=== PATIENT | female | born 1995 | race Caucasian/White ===

== ENCOUNTER → 2016-10-16 | Outpatient (CLI) | payer MEDICAID ==
[2016-10-16 14:14] LABS: C-REACTIVE PROTEIN 11.8 mg/L (<10.0)
== END ==
LOC: OD 12:26
PROVIDERS: ATTEND Physician Assistant
DX: M25.50 Pain in unspecified joint (principal); N91.2 Amenorrhea, unspecified
CPT/HCPCS: 36415; 84702; 85597; 85598; 85613; 85652; 85730; 85732; 86038; 86140; 86146; 86147; 86148; 86200; 86430; 86849

== ENCOUNTER 2017-05-20 01:29 | Emergency (ER) | payer MEDICAID ==
[2017-05-20] MEDS ORDERED: ONDANSETRON HCL INJ/PF 4 MG/2 ML SDV IV ONE (03:10)
[2017-05-20] MEDS ORDERED: NORMAL SALINE 1000 ML 1,000 ML IV ONE (03:11)
--- NOTE | 2017-05-20 03:15 | ER Document Report ---
HPI - HPI Pain Level: 4 Notes: Patient with a history of pulmonary embolism (on Coumadin), ulcerative colitis comes to the ED complaining of lower pelvic pain and heavy vaginal bleeding 7 hours. Patient states that she did start her period yesterday, but states that she has gone through 5 tampons and 2 pads over the last 3 hours. Patient has associated nausea without vomiting, occasional dizziness, and mild lower back pain. Patient has a decreased appetite as well. Patient denies any sexual intercourse over the last 3 weeks. Patient states that she was treated for bacterial vaginosis 2 weeks ago and finished her antibiotic a few days ago. Patient states that her Coumadin/INR was 3.7 today and she was holding last night's dose because of that. Patient states that she did pass a large vaginal clot due to the heavy bleeding. Denies any headache, fever, URI, sore throat, chest pain, palpitations, syncope, cough, shortness of breath, wheeze, dyspnea, vomiting/diarrhea, urinary retention, dysuria, hematuria, loss of control of bowel or bladder, numbness/tingling, saddle anesthesia, muscle paralysis/ weakness, or rash. - ROS Notes: REVIEW OF SYSTEMS: CONSTITUTIONAL : Denies fever, chills, or sweats. Denies recent illness. EENT: Denies eye, ear, throat, or mouth pain or symptoms. Denies nasal or sinus congestion or discharge. Denies throat, tongue, or mouth swelling or difficulty swallowing. CARDIOVASCULAR: Denies chest pain. Denies palpitations or racing or irregular heart beat. Denies ankle edema. RESPIRATORY: Denies cough, cold, or chest congestion. Denies shortness of breath, difficulty breathing, or wheezing. GASTROINTESTINAL: See HPI GENITOURINARY: Denies difficulty urinating, painful urination, burning, frequency, blood in urine, or discharge. FEMALE GENITOURINARY: See HPI MUSCULOSKELETAL: Denies back or neck pain or stiffness. Denies joint pain or swelling. SKIN: Denies rash, lesions or sores. NEUROLOGICAL: Denies confusion or altered mental status. Denies passing out or loss of consciousness. Denies dizziness or lightheadedness. Denies headache. Denies weakness or paralysis or loss of use of either side. Denies problems with gait or speech. Denies sensory loss, numbness, or tingling. Denies seizures. PSYCHIATRIC: Denies anxiety or stress. Denies depression, suicidal ideation, or homicidal ideation. ALL OTHER SYSTEMS REVIEWED AND NEGATIVE. Dictation was performed using [employer] voice recognition software - REPRODUCTIVE Reproductive: DENIES: : - DERM Skin Color: Normal, [place] Past Medical History - Social History Smoking Status: Never Smoker Family History: Arthritis, CAD, CVA, DM, Hyperlipidemia, Hypertension, Malignancy - Past Medical History Cardiac Medical History: Reports: Hx DVT, Hx Pulmonary Embolism - Twice Pulmonary Medical History: Reports: Hx Intubation - With trach as a child Renal/ Medical History: Denies: Hx Peritoneal Dialysis GI Medical History: Reports: Hx Gastroesophageal Reflux Disease, Hx Ulcerative Colitis, Hx Colonoscopy, Hx Endoscopy Musculoskeltal Medical History: Reports Hx Arthritis, Reports Hx Musculoskeletal Trauma - nose, bilateral ankles, and toe Psychiatric Medical History: Reports: Hx Anxiety, Hx Depression Traumatic Medical History: Reports: Hx Fractures Past Surgical History: Reports: Hx Abdominal Surgery - colostomy/take down multiple bowel surgeries, Hx Bowel Surgery - Multiple bowel surgeries and a J- pouch, Hx Cholecystectomy, Hx Colostomy - Had reversal surgery creating a J- pouch - Immunizations Immunizations up to date: Yes Hx Diphtheria, Pertussis, Tetanus Vaccination: Yes Vertical Provider Document - INFECTION CONTROL TRAVEL OUTSIDE OF THE [place] IN LAST 30 DAYS: No - RESPIRATORY O2 Sat by Pulse Oximetry: 97 Course - Re-evaluation Re-evalutation: 05/20/17 06:20 Patient is an afebrile, well-hydrated, 21-year-old female who presents the ED with vaginal bleeding and suspected UTI. Vitals are stable. PE otherwise unremarkable at this time. CBC, CMP unremarkable. Urine negative. Urinalysis showed white blood cells and leuks. Transvaginal ultrasound was unremarkable for any acute pathology. 1L NS given along with zofran and tylenol. Patient has a history of pulmonary embolism and is currently on Coumadin with an INR of 2.52. Reviewed with Dr. Rausch. Pt is hemodynamically stable. I will send her home with a prescription for Keflex to take as directed. Patient advised she call her OBGYN this morning to set up a consult. Recheck with PCM this week. Return to the ED with any worsening/ concerning symptoms otherwise as reviewed discharge. Patient is in agreement. Patient advised to monitor INR closely when on an antibiotic. - Vital Signs Vital signs: Temp Pulse Resp BP Pulse Ox 99.1 F 96 16 126/76 H 97 05/20/17 01:55 05/20/17 01:55 05/20/17 03:01 05/20/17 03:01 05/20/17 03:01 - Laboratory Result Diagrams: 05/20/17 02:55 05/20/17 02:55 Discharge - Discharge Clinical Impression: Dysfunctional uterine bleeding UTI (urinary tract infection) Qualifiers: Urinary tract infection type: site unspecified Hematuria presence: without hematuria Qualified Code(s): N39.0 - Urinary tract infection, site not specified Condition: Stable Disposition: HOME, SELF-CARE Instructions: Urinary Tract Infection ([facility]), Cephalexin ([facility]), Dysfunctional Uterine Bleeding ([facility]) Additional Instructions: Take home medications as directed Take antibiotic as directed, and monitor your INR very closely while on antibiotics Push fluids (i.e. water, cranberry juice) Proper hygenic technique Keep the skin clean Tylenol/ibuprofen as needed May use over the counter AZO for burning with urination Call your SIGN LANGUAGE INSTRUCTOR this morning to set up a follow-up appointment F/u with your PCM in 2-3 days for a recheck Consider consult with a Urologist for ongoing/worsening symptoms. Return to the ED with any worsening symptoms and/or development of fever, headache, chest pain, palpitations, syncope, shortness of breath, trouble breathing, abdominal pain, n/v/d, blood in stool/urine, loss of control of bowel /bladder, urinary retention, or other worsening symptoms that are concerning to you. Forms: Elevated Blood Pressure Referrals: YAHIR WOOD DO [Primary Care Provider] - 05/22/17
[2017-05-20 03:17] LABS: ABSOLUTE BASOPHILS # (AUTO) 0.1 10^3/uL (0.0-0.2); ABSOLUTE EOSINOPHILS # (AUTO) 0.5 10^3/uL (0.0-0.6); ABSOLUTE MONOCYTES (AUTO) 0.7 10^3/uL (0.1-1.4); ABSOLUTE NEUT (AUTO) 5.7 10^3/uL (1.7-8.2); BASOPHILS % (AUTO) 1.1 % (0-2); EOSINOPHILS % (AUTO) 6.1 % (0-6); HEMATOCRIT 40.6 % (36.0-47.0); HEMOGLOBIN 13.7 g/dL (12.0-15.5); HGB HCT DIFFERENCE 0.5; LYMPHOCYTES % (AUTO) 22.2 % (13-45); MEAN CORPUSCULAR HEMOGLOBIN 28.2 pg (27.0-33.4); MEAN CORPUSCULAR HGB CONC 33.8 g/dL (32.0-36.0); MEAN CORPUSCULAR VOLUME 84 fl (80-97); MONOCYTES % (AUTO) 7.2 % (3-13); RED BLOOD COUNT 4.85 10^6/uL (3.72-5.28); RED CELL DISTRIBUTION WIDTH 13.8 % (11.5-14.0); SEGMENTED NEUTROPHILS % (AUTO) 63.4 % (42-78)
[2017-05-20 03:35] LABS: ALANINE AMINOTRANSFERASE 42 U/L (9-52); ALBUMIN 4.4 g/dL (3.5-5.0); ALKALINE PHOSPHATASE 108 U/L (38-126); ANION GAP 10 (5-19); ASPARTATE AMINO TRANSFERASE 79 U/L (14-36); BILIRUBIN,DIRECT 0.5 mg/dL (0.0-0.4); BILIRUBIN,TOTAL 0.7 mg/dL (0.2-1.3); BLOOD UREA NITROGEN 11 mg/dL (7-20); CALCIUM 9.6 mg/dL (8.4-10.2); CARBON DIOXIDE 26 mmol/L (22-30); CHLORIDE 103 mmol/L (98-107); CREATININE RESULT 0.76 mg/dL (0.52-1.25); GLUCOSE 86 mg/dL (75-110); POTASSIUM 4.1 mmol/L (3.6-5.0); SODIUM 138.8 mmol/L (137-145); TOTAL PROTEIN 7.7 g/dL (6.3-8.2)
[2017-05-20 03:42] LABS: PROTHROMBIN TIME 28.5 SEC (11.4-15.4)
[2017-05-20 03:43] LABS: PARTIAL THROMBOPLASTIN TIME 45.7 SEC (23.5-35.8)
[2017-05-20] MEDS ORDERED: ACETAMINOPHEN 325 MG TABLET PO ONE (03:50)
[2017-05-20 04:13] LABS: ADD ON TESTING BLD IN LAB ACKNOWLEDGE
[2017-05-20 04:16] LABS: APPEARANCE,URINE SLIGHTLY-CLOUDY; BILIRUBIN,URINE NEGATIVE (NEGATIVE); GLUCOSE, URINE NEGATIVE (NEGATIVE); KETONES,URINE NEGATIVE (NEGATIVE); LEUKOCYTE ESTERASE,URINE MODERATE (NEGATIVE); NITRITE,URINE NEGATIVE (NEGATIVE); PROTEIN,URINE NEGATIVE (NEGATIVE); URINE SPECIFIC GRAVITY 1.006; UROBILINOGEN,URINE NEGATIVE mg/dL (<2.0)
[2017-05-20 04:21] LABS: LIPASE 103.5 U/L (23-300)
--- NOTE | 2017-05-20 06:03 | RADIOLOGY REPORT (SQ) ---
EXAM DESCRIPTION: U/S NON OB PEL TV W/DOPPLER COMPLETED DATE/TIME: 05/20/2017 5:35 am REASON FOR STUDY: pelvic pain, vaginal bleeding COMPARISON: CT, 06/11/2016, 06/23/2015. TECHNIQUE: Dynamic and static grayscale images acquired of the pelvis via transvaginal approach and recorded on PACS. Additional selected color Doppler and spectral images recorded. LIMITATIONS: None. FINDINGS: UTERUS: Contour normal. No mass. 6.9 x 4.6 x 3.6 cm. ENDOMETRIAL STRIPE: No focal or generalized thickening. No masses. 0.4 cm thick. CERVIX: No nabothian cysts. RIGHT OVARY: 4.7 cm with 2.9 cm cystic component. 3.5 cm cm cystic component likely indicates a smal l hydrosalpinx consistent with prior exams. RIGHT OVARY DOPPLER: Normal arterial vascular flow without evidence for torsion. LEFT OVARY: No abnormal masses. 3.7 cm. LEFT OVARY DOPPLER: Normal arterial vascular flow without evidence for torsion. FREE FLUID: None noted. OTHER: No other significant finding. MEASUREMENTS: UTERUS: 6.9 x 5 x 4 cm. ENDOMETRIAL STRIPE: 0.4 cm thickness. RIGHT OVARY: 4.7 cm. LEFT OVARY: 3.7 cm. IMPRESSION: No acute findings. Likely chronic small right hydrosalpinx. TECHNICAL DOCUMENTATION: JOB ID: [id number]- All Rights Reserved
[2017-05-20 07:07] VITALS: BP 120/65
== END 2017-05-20 07:05 | disposition home or self-care (01) ==
LOC: ER 01:29
DX: N93.8 Other specified abnormal uterine and vaginal bleeding (principal); N39.0 Urinary tract infection, site not specified; Z86.711 Personal history of pulmonary embolism; Z79.01 Long term (current) use of anticoagulants; Z90.49 Acquired absence of other specified parts of digestive tract
CPT/HCPCS: 99284; 96361; 96374; 36415; 83690; 85025; 85610; 85730; 81025; 80053; 81001; 76830; 93976; J3490; J2405; J7030

== ENCOUNTER 2017-06-18 00:49 | Emergency (ER) | payer MEDICAID ==
--- NOTE | 2017-06-18 01:43 | ER Document Report ---
ED General - General Chief Complaint: Vaginal Discharge Stated Complaint: NAUSEA AND FEVER Time Seen by Provider: 06/18/17 01:09 Mode of Arrival: Ambulatory Information source: Patient Notes: This is a 21-year-old female with a history of ulcerative colitis (status post total colectomy), pulmonary embolism (on Coumadin) who presents to the emergency room with nausea, pelvic pain. Patient does states she has been having some vaginal spotting as well as vaginal discharge. She states she is about due for her period. She does state that she has painful periods. TRAVEL OUTSIDE OF THE [place] IN LAST 30 DAYS: No - HPI Onset: Last week Onset/Duration: Gradual Quality of pain: Dull Severity: Moderate Pain Level: 2 Associated symptoms: Fever - Patient states she had a temperature of 100.9 today. denies: Chest pain, Nonproductive cough, Productive cough, Nausea, Vomiting, Shortness of breath Exacerbated by: Denies Relieved by: Denies Similar symptoms previously: Yes Recently seen / treated by doctor: Yes - Related Data Allergies/Adverse Reactions: loracarbef [From Lorabid] Allergy (Verified 06/18/17 00:52) Past Medical History - General Information source: Patient Last Menstrual Period: 05/19/2017 - Social History Smoking Status: Former Smoker Cigarette use (# per day): No Chew tobacco use (# tins/day): No Frequency of alcohol use: None Drug Abuse: None Lives with: Family Family History: Arthritis, CAD, CVA, DM, Hyperlipidemia, Hypertension, Malignancy Patient has suicidal ideation: No Patient has homicidal ideation: No - Past Medical History Cardiac Medical History: Reports: Hx DVT, Hx Pulmonary Embolism - Twice Pulmonary Medical History: Reports: Hx Intubation - With trach as a child Renal/ Medical History: Denies: Hx Peritoneal Dialysis GI Medical History: Reports: Hx Gastroesophageal Reflux Disease, Hx Ulcerative Colitis, Hx Colonoscopy, Hx Endoscopy Musculoskeltal Medical History: Reports Hx Arthritis, Reports Hx Musculoskeletal Trauma - nose, bilateral ankles, and toe Psychiatric Medical History: Reports: Hx Anxiety, Hx Depression Traumatic Medical History: Reports: Hx Fractures Past Surgical History: Reports: Hx Abdominal Surgery - colostomy/take down multiple bowel surgeries, Hx Bowel Surgery - Multiple bowel surgeries and a J- pouch, Hx Cholecystectomy, Hx Colostomy - Had reversal surgery creating a J- pouch - Immunizations Immunizations up to date: Yes Hx Diphtheria, Pertussis, Tetanus Vaccination: Yes Review of Systems - Review of Systems Constitutional: Fever. denies: Chills EENT: No symptoms reported Cardiovascular: No symptoms reported. denies: Chest pain, Palpitations, Syncope Respiratory: denies: Cough, Short of breath Gastrointestinal: denies: Abdominal pain, Diarrhea, Vomiting Genitourinary: denies: Burning, Dysuria, Discharge - Is Female Genitourinary: Vaginal discharge, Vaginal bleeding Musculoskeletal: No symptoms reported Skin: No symptoms reported Hematologic/Lymphatic: No symptoms reported Neurological/Psychological: No symptoms reported Physical Exam - Vital signs Vitals: Temp Pulse Resp BP Pulse Ox 98.8 F 103 H 20 132/88 H 99 06/18/17 00:56 06/18/17 00:56 06/18/17 00:56 06/18/17 00:56 06/18/17 00:56 Notes: Physical exam: GENERAL: 21-year-old female, alert and oriented 3, no acute distress HEAD: Atraumatic, normocephalic. EYES: Pupils equal round and reactive to light, extraocular movements intact, sclera anicteric, conjunctiva are normal. ENT: TMs normal, nares patent, oropharynx clear without exudates. Moist mucous membranes. NECK: Normal range of motion, supple without obvious mass or JVD. LUNGS: Breath sounds clear to auscultation bilaterally and equal. No wheezes rales or rhonchi. HEART: Regular rate and rhythm without murmurs, rubs or gallops. ABDOMEN: Soft, normoactive bowel sounds. Mild pelvic tenderness to palpation. No guarding, no rebound. No masses appreciated. Vaginal: External genitalia normal. Blood in vaginal vault, coming from cervix. There is uterine tenderness. There is no obvious masses. EXTREMITIES: Normal range of motion, no pitting or edema. No clubbing or cyanosis. NEUROLOGICAL: Cranial nerves II through XII grossly intact. Normal speech, moving all extremities. PSYCH: Normal mood, normal affect. SKIN: Warm, Dry, normal turgor, no rashes or lesions noted. Course - Re-evaluation Re-evalutation: 06/18/17 04:27 I have had a long discussion with the patient (and the mother who is at the bedside) regarding the ultrasound report. I have read them the impression. [facility] BUSINESS MACHINE MECHANIC. She does have an appointment with her primary care doctor on Friday and states that every time she goes to the [facility], she requires a referral. I have given them a copy of the ultrasound reports and told them to show both the primary care doctor as well as the supervisor publications production. The ultrasound report suggests repeat ultrasound in 6 weeks or BUSINESS MACHINE MECHANIC consultation. A neoplastic process cannot be ruled out: I have discussed this with the patient and the mother's at the bedside - Vital Signs Vital signs: Temp Pulse Resp BP Pulse Ox 98.8 F 103 H 20 132/88 H 99 06/18/17 00:56 06/18/17 00:56 06/18/17 00:59 06/18/17 00:56 06/18/17 00:56 - Laboratory Result Diagrams: 06/18/17 01:50 06/18/17 01:50 Laboratory results interpreted by me: 06/18/17 06/18/17 06/18/17 01:50 01:50 01:50 RDW 14.8 H PT 27.1 H Sodium 145.2 H Chloride 108 H Ur Leukocyte Esterase 06/18/17 01:50 RDW PT Sodium Chloride Ur Leukocyte Esterase TRACE H - Diagnostic Test Radiology reviewed: Image reviewed, Reports reviewed - Paraovarian cystic or nonvascular mass Discharge - Discharge Clinical Impression: Menorrhagia, Paraovarian cyst Condition: Stable Disposition: HOME, SELF-CARE Instructions: Menorrhagia ([facility]), Ovarian Cyst ([facility]) Additional Instructions: Thank you for choosing [facility] for your care. The examination and treatment you have received in the Emergency Department today has been rendered on an emergency basis only and is not intended to be a substitute for complete medical care. You should contact your follow-up physician as it is important that he or she examine you for any new or remaining problems. If given a copy of any lab tests or radiology reports, please bring them with you when you see your physician. If your problem worsens or new symptoms appear and you are unable to arrange prompt follow-up care, return to the Emergency Department. Specific signs to look out for: Worsening pain, persistent fever, any concerns or getting worse. Any other instructions: Take the pain medicine as prescribed. See the narcotic instructions below. Take Zofran for nausea. Follow-up with your primary care doctor as planned on Friday: Bring a copy of today's ultrasound report as well as labs with you. The ultrasound report recommended repeat ultrasound in 6 weeks or BUSINESS MACHINE MECHANIC follow- up. I recommend you see your BUSINESS MACHINE MECHANIC doctor in the next week or 2. Bring a copy of today's labs and ultrasound report with you when you go. The pain medicine you're taking prescribed as a narcotic. There are several important things you should know about this medicine: 1. Taking narcotics for too long can lead to physical and mental dependence. Take this medicine only if really needed and in the lowest quantity to achieve pain relief. 2. Do not drink alcohol while on this medicine. Alcohol interacts with narcotics and the combination can be dangerous. 3. Do not drive or operate machinery while on this medicine. 4. Narcotics do cause constipation, so drink plenty of fluids and daily stool softeners. Prescriptions: Oxycodone HCl 5 mg PO Q6HP PRN #25 tablet PRN Reason: Ondansetron HCl [Zofran 4 mg Tablet] 1 - 2 tab PO Q4H PRN #10 tablet PRN Reason: Referrals: YAHIR WOOD DO [Primary Care Provider] - Follow up as needed OLIVE LE MD [ACTIVE STAFF] - Follow up as needed (This is the number [facility])
[2017-06-18 02:04] LABS: ABSOLUTE BASOPHILS # (AUTO) 0.1 10^3/uL (0.0-0.2); ABSOLUTE EOSINOPHILS # (AUTO) 0.4 10^3/uL (0.0-0.6); ABSOLUTE LYMPHOCYTES (AUTO) 2.2 10^3/uL (0.5-4.7); ABSOLUTE MONOCYTES (AUTO) 0.5 10^3/uL (0.1-1.4); ABSOLUTE NEUT (AUTO) 5.6 10^3/uL (1.7-8.2); BASOPHILS % (AUTO) 0.9 % (0-2); EOSINOPHILS % (AUTO) 4.7 % (0-6); HEMATOCRIT 42.4 % (36.0-47.0); HEMOGLOBIN 14.1 g/dL (12.0-15.5); HGB HCT DIFFERENCE -0.1; LYMPHOCYTES % (AUTO) 24.7 % (13-45); MEAN CORPUSCULAR HEMOGLOBIN 28.4 pg (27.0-33.4); MEAN CORPUSCULAR HGB CONC 33.3 g/dL (32.0-36.0); MEAN CORPUSCULAR VOLUME 85 fl (80-97); MONOCYTES % (AUTO) 6.2 % (3-13); RED BLOOD COUNT 4.98 10^6/uL (3.72-5.28); RED CELL DISTRIBUTION WIDTH 14.8 % (11.5-14.0); SEGMENTED NEUTROPHILS % (AUTO) 63.5 % (42-78); WHITE BLOOD COUNT 8.8 10^3/uL (4.0-10.5)
[2017-06-18] MEDS ORDERED: ONDANSETRON HCL 8 MG TABLET PO ONE (02:04)
[2017-06-18] MEDS ORDERED: OXYCODONE-ACETAMINOPHEN 5-325 MG TABLET PO ONE (02:04)
[2017-06-18 02:05] LABS: APPEARANCE,URINE CLEAR; BILIRUBIN,URINE NEGATIVE (NEGATIVE); GLUCOSE, URINE NEGATIVE (NEGATIVE); KETONES,URINE NEGATIVE (NEGATIVE); LEUKOCYTE ESTERASE,URINE TRACE (NEGATIVE); NITRITE,URINE NEGATIVE (NEGATIVE); PROTEIN,URINE NEGATIVE (NEGATIVE); URINE SPECIFIC GRAVITY 1.023; UROBILINOGEN,URINE NEGATIVE mg/dL (<2.0)
[2017-06-18 02:07] LABS: PROTHROMBIN TIME 27.1 SEC (11.4-15.4)
[2017-06-18 03:25] LABS: ALANINE AMINOTRANSFERASE 33 U/L (9-52); ALBUMIN 4.6 g/dL (3.5-5.0); ALKALINE PHOSPHATASE 97 U/L (38-126); ANION GAP 14 (5-19); ASPARTATE AMINO TRANSFERASE 28 U/L (14-36); BILIRUBIN,DIRECT 0.3 mg/dL (0.0-0.4); BILIRUBIN,TOTAL 0.4 mg/dL (0.2-1.3); BLOOD UREA NITROGEN 13 mg/dL (7-20); CALCIUM 10.1 mg/dL (8.4-10.2); CARBON DIOXIDE 23 mmol/L (22-30); CHLORIDE 108 mmol/L (98-107); CREATININE RESULT 0.95 mg/dL (0.52-1.25); GLUCOSE 87 mg/dL (75-110); POTASSIUM 4.1 mmol/L (3.6-5.0); SODIUM 145.2 mmol/L (137-145); TOTAL PROTEIN 7.3 g/dL (6.3-8.2)
[2017-06-18 03:42] LABS: CHLAM PCR NOT DETECTED (NOT DETECT)
--- NOTE | 2017-06-18 04:13 | RADIOLOGY REPORT (SQ) ---
EXAM DESCRIPTION: U/S NON OB PEL TV W/DOPPLER COMPLETED DATE/TIME: 06/18/2017 3:46 am REASON FOR STUDY: pelvic pain COMPARISON: None. TECHNIQUE: Dynamic and static grayscale images acquired of the pelvis via transvaginal approach and recorded on PACS. Additional selected color Doppler and spectral images recorded. LIMITATIONS: None. FINDINGS: UTERUS: Contour normal. No mass. ENDOMETRIAL STRIPE: No focal or generalized thickening. No masses. CERVIX: No nabothian cysts. RIGHT OVARY: 4.4 x 3.4 x 3.1 cm right ovary with 4.0 x 3.9 x 1.8 cm hypoechoic, avascular paraovarian component increase compared with prior exam, 05/20/2017 at which time it measured 3.7 x 3.2 x 1.7 cm. RIGHT OVARY DOPPLER: Normal arterial vascular flow without evidence for torsion. LEFT OVARY: No abnormal masses. LEFT OVARY DOPPLER: Normal arterial vascular flow without evidence for torsion. FREE FLUID: None noted. OTHER: No other significant finding. MEASUREMENTS: UTERUS: 6.8 cm. ENDOMETRIAL STRIPE: 0.4 cm. RIGHT OVARY: 4.4 cm. LEFT OVARY: 3.7 cm. IMPRESSION: 4.0 cm right paraovarian hypoechoic, avascular lesion may indicate a small hydrosalpinx and/or paraovarian cyst slightly increased compared with prior exam from 05/20/2017. Other neoplastic processes cannot be excluded. Further ultrasound surveillance in 6 weeks and/or PAPER CONE MACHINE OPERATOR consultation ad vised. TECHNICAL DOCUMENTATION: JOB ID: [id number] [employer]- All Rights Reserved
[2017-06-18 04:57] VITALS: BP 115/53
== END 2017-06-18 04:57 | disposition home or self-care (01) ==
LOC: ER 00:49
DX: N83.291 Other ovarian cyst, right side (principal); N92.0 Excessive and frequent menstruation with regular cycle; N89.8 Other specified noninflammatory disorders of vagina; R11.0 Nausea; R50.9 Fever, unspecified; R10.2 Pelvic and perineal pain; Z87.891 Personal history of nicotine dependence
CPT/HCPCS: 99284; 36415; 87210; 84703; 85025; 85610; 80053; 81001; 87491; 87591; 76830; 93976; S0119

== ENCOUNTER 2017-09-13 09:01 | Emergency (ER) | payer OTHER, MEDICAID ==
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
[2017-09-13] MEDS ORDERED: HYDROCODONE/ACETAMINOPHEN 5-325 MG 6 TAB/DSPK PO PRN (10:04)
[2017-09-13] MEDS ORDERED: LIDOCAINE 5% (700 MG) TRANSDERMAL ADH..PATCH TP ONE (10:04)
[2017-09-13 10:10] VITALS: BP 137/84
== END 2017-09-13 10:19 | disposition home or self-care (01) ==
LOC: ER 09:01
DX: S49.92XA Unspecified injury of left shoulder and upper arm, initial encounter (principal); M25.512 Pain in left shoulder; V87.7XXA Person injured in collision between other specified motor vehicles (traffic), initial encounter; Z87.891 Personal history of nicotine dependence
CPT/HCPCS: 99283

== ENCOUNTER 2018-01-04 21:30 | Emergency (ER) | payer MEDICAID ==
[2018-01-05 00:37] LABS: APPEARANCE,URINE CLEAR; BILIRUBIN,URINE NEGATIVE (NEGATIVE); COLOR,URINE YELLOW; GLUCOSE, URINE NEGATIVE (NEGATIVE); KETONES,URINE NEGATIVE (NEGATIVE); LEUKOCYTE ESTERASE,URINE LARGE (NEGATIVE); NITRITE,URINE NEGATIVE (NEGATIVE); PROTEIN,URINE 30 mg/dL (NEGATIVE); URINE SPECIFIC GRAVITY 1.033; UROBILINOGEN,URINE NEGATIVE mg/dL (<2.0)
[2018-01-05] MEDS ORDERED: CEPHALEXIN 500 MG CAPSULE PO ONE (00:56)
--- NOTE | 2018-01-05 00:57 | ER Document Report ---
ED General - General Chief Complaint: Urinary Problem Stated Complaint: VAGINAL DISCOMFORT Time Seen by Provider: 01/04/18 23:44 Notes: Patient is a 22-year-old female without past medical history who presents with 3 days of dysuria and urinary frequency. Describes as a burning, stinging sensation with urination. She has been trying [id number] Azo with minimal improvement of her symptoms. Nothing worsens her symptoms. She reports that this feels similar to urinary tract infections that she has had in the past although slightly worse. She has not seen her primary care doctor regarding these concerns. She denies any associated fever or constitutional symptoms. TRAVEL OUTSIDE OF THE [place] IN LAST 30 DAYS: No - Related Data Allergies/Adverse Reactions: loracarbef [From Lorabid] Allergy (Verified 08/09/17 22:46) NSAIDS (Non-Steroidal Anti-Inflamma Adverse Reaction (Verified 09/13/17 09:06) Past Medical History - General Information source: Patient - Social History Smoking Status: Never Smoker Frequency of alcohol use: None Drug Abuse: None Lives with: Family Family History: Arthritis, CAD, CVA, DM, Hyperlipidemia, Hypertension, Malignancy Patient has suicidal ideation: No Patient has homicidal ideation: No - Past Medical History Cardiac Medical History: Reports: Hx DVT, Hx Pulmonary Embolism - Twice Pulmonary Medical History: Reports: Hx Intubation - With trach as a child Renal/ Medical History: Reports: Hx Ovarian Cysts. Denies: Hx Peritoneal Dialysis GI Medical History: Reports: Hx Gastroesophageal Reflux Disease, Hx Ulcerative Colitis, Hx Colonoscopy, Hx Endoscopy Musculoskeltal Medical History: Reports Hx Arthritis, Reports Hx Musculoskeletal Trauma - nose, bilateral ankles, and toe Psychiatric Medical History: Reports: Hx Anxiety, Hx Depression Traumatic Medical History: Reports: Hx Fractures Past Surgical History: Reports: Hx Abdominal Surgery - colostomy/take down multiple bowel surgeries, Hx Bowel Surgery - Multiple bowel surgeries and a J- pouch, Hx Cholecystectomy, Hx Colostomy - Had reversal surgery creating a J- pouch - Immunizations Immunizations up to date: Yes Hx Diphtheria, Pertussis, Tetanus Vaccination: Yes Review of Systems - Review of Systems Notes: Constitutional: Negative for fever. HENT: Negative for sore throat. Eyes: Negative for visual changes. Cardiovascular: Negative for chest pain. Respiratory: Negative for shortness of breath. Gastrointestinal: Negative for abdominal pain, vomiting or diarrhea. Genitourinary: Positive for dysuria. Musculoskeletal: Negative for back pain. Skin: Negative for rash. Neurological: Negative for headaches, weakness or numbness. 10 point ROS negative except as marked above and in HPI. Physical Exam - Vital signs Vitals: Temp Pulse Resp BP Pulse Ox 98.4 F 90 20 122/73 99 01/04/18 22:40 01/04/18 22:40 01/04/18 22:40 01/04/18 22:40 01/04/18 22:40 Interpretation: Normal Notes: PHYSICAL EXAMINATION: GENERAL: Well-appearing, well-nourished and in no acute distress. HEAD: Atraumatic, normocephalic. EYES: Pupils equal round and reactive to light, extraocular movements intact, sclera anicteric, conjunctiva are normal. ENT: nares patent, oropharynx clear without exudates. Moist mucous membranes. NECK: Normal range of motion, supple without lymphadenopathy LUNGS: Breath sounds clear to auscultation bilaterally and equal. No wheezes rales or rhonchi. HEART: Regular rate and rhythm without murmurs ABDOMEN: Soft, nontender, normoactive bowel sounds. No guarding, no rebound. No masses appreciated. EXTREMITIES: Normal range of motion, no pitting or edema. No cyanosis. NEUROLOGICAL: No focal neurological deficits. Moves all extremities spontaneously and on command. PSYCH: Normal mood, normal affect. SKIN: Warm, Dry, normal turgor, no rashes or lesions noted. Course - Re-evaluation Re-evalutation: 01/05/18 00:56 Patient presents with symptoms consistent with an acute cystitis. Vitals wnl. No history of fever, flank pain, or constitution symptoms to suggest ascending infection at this time. Patient is well in appearance, tolerating oral intake without difficulty. No focal abdominal tenderness to suggest acute appendicitis , biliary pathology, acute pancreatitis, tubo-ovarian abscesses, or pelvic inflammatory disease. Patient will be started on antibiotics at this time. A culture has been sent. They will be discharged with return precautions and follow-up recommendations. - Vital Signs Vital signs: Temp Pulse Resp BP Pulse Ox 98.4 F 83 16 126/56 H 100 01/04/18 22:40 01/05/18 01:09 01/05/18 01:09 01/05/18 01:09 01/05/18 01:09 - Laboratory Laboratory results interpreted by me: 01/04/18 23:30 Urine Protein 30 H Ur Leukocyte Esterase LARGE H Urine Ascorbic Acid 40 H Discharge - Discharge Clinical Impression: Urinary tract infection Qualifiers: Urinary tract infection type: acute cystitis Hematuria presence: with hematuria Qualified Code(s): N30.01 - Acute cystitis with hematuria Condition: Good Disposition: HOME, SELF-CARE Additional Instructions: Your urine shows findings consistent with a urinary tract infection. Please take all the antibiotics as directed even if your symptoms have improved. Please follow-up with your primary care physician as needed. Return to emergency room if you develop fever >101F, persistent vomiting, become lethargic , have severe pain in your sides, or any other symptoms that are concerning to you. Prescriptions: Cephalexin Monohydrate [Keflex 500 mg Capsule] 500 mg PO Q6H 5 Days capsule Phenazopyridine HCl [Pyridium] 100 mg PO TID PRN #30 tablet PRN Reason: Referrals: JUANITA SOL MD [Primary Care Provider] - Follow up as needed
[2018-01-05 01:11] VITALS: BP 126/56
== END 2018-01-05 01:11 | disposition home or self-care (01) ==
LOC: ER 21:30
DX: N30.01 Acute cystitis with hematuria (principal); Z86.718 Personal history of other venous thrombosis and embolism; Z86.711 Personal history of pulmonary embolism; Z90.49 Acquired absence of other specified parts of digestive tract; Z93.3 Colostomy status
CPT/HCPCS: 36415; 81001; 81025; 87086; 87088; 87186; 99284

== ENCOUNTER → 2018-02-12 | Outpatient (CLI) | payer MEDICAID ==
--- NOTE | 2018-02-12 18:00 | RADIOLOGY REPORT (SQ) ---
EXAM DESCRIPTION: CHEST 2 VIEWS COMPLETED DATE/TIME: 02/12/2018 5:21 pm REASON FOR STUDY: SOB, PE COMPARISON: 03/19/2016 EXAM PARAMETERS: NUMBER OF VIEWS: two views TECHNIQUE: Digital Frontal and Lateral radiographic views of the chest acquired. RADIATION DOSE: NA LIMITATIONS: none FINDINGS: LUNGS AND PLEURA: No opacities, masses or pneumothorax. No pleural effusion. MEDIASTINUM AND HILAR STRUCTURES: No masses or contour abnormalities. HEART AND VASCULAR STRUCTURES: Heart normal size. No evidence for failure. BONES: No acute findings. HARDWARE: None in the chest. OTHER: No other significant finding. IMPRESSION: NO ACUTE RADIOGRAPHIC FINDING IN THE CHEST. TECHNICAL DOCUMENTATION: JOB ID: [id number] [employer]- All Rights Reserved Reading location - IP/workstation name: [email or web address]
--- NOTE | 2018-02-12 18:18 | RADIOLOGY REPORT (SQ) ---
EXAM DESCRIPTION: NM LUNG VENT/PERF SCAN COMPLETED DATE/TIME: 02/12/2018 6:06 pm REASON FOR STUDY: CP, SOB, PRIOR H/O PE R06.02 SHORTNESS OF BREATH COMPARISON: None. RADIONUCLIDE AND DOSE: 5 millicuries TC-99m MAA Intravenous 30 millicuries TC-99m DTPA Inhaled aerosol TECHNIQUE: Eight views of the lungs acquired post ventilation of DTPA aerosol. Eight matching views of the lungs acquired following injection of MAA. LIMITATIONS: None. FINDINGS: VENTILATION: Symmetric in homogeneous distribution DTPA. Reduced volume in the right lung that appears to be secondary to elevation the right hemidiaphragm. PERFUSION: Perfusion images with normal homogenous activity and no wedge-shaped or segmental defects. No ventilation-perfusion mismatches. OTHER: No other significant finding. IMPRESSION: Low probability of pulmonary embolus. TECHNICAL DOCUMENTATION: JOB ID: [id number] [email or web address]- All Rights Reserved Reading location - IP/workstation name: [email or web address]
== END ==
LOC: RAD 14:49
PROVIDERS: ATTEND Internal Medicine Hematology & Oncology
DX: I26.99 Other pulmonary embolism without acute cor pulmonale (principal); R06.02 Shortness of breath
CPT/HCPCS: 71046; 78582; A9540; A9567; Q9969

== ENCOUNTER 2018-03-04 17:40 | Emergency (ER) | payer MEDICAID ==
[2018-03-04] MEDS ORDERED: NORMAL SALINE 1000 ML 1,000 ML IV PRN (18:16)
--- NOTE | 2018-03-04 18:17 | ER Document Report ---
ED Medical Screen (RME) - General Chief Complaint: Other Stated Complaint: BLEEDING Time Seen by Provider: 03/04/18 18:15 Notes: 22 years old female with a history of pulmonary embolism 3, was treated with Coumadin for last 2 years, recently changed to Xarelto. She has been taking Xarelto for the last 2 weeks, Started bleeding from the gum vomited blood, heavy menstrual cycle with excessive bleeding. Therefore concerned and came to the ED. I have greeted and performed a rapid initial assessment of this patient. A comprehensive ED assessment and evaluation of the patient, analysis of test results and completion of the medical decision making process will be conducted by additional ED providers. PHYSICAL EXAMINATION: GENERAL: Well-appearing, well-nourished and in no acute distress. HEAD: Atraumatic, normocephalic. EYES: Pupils equal round extraocular movements intact, conjunctiva are normal. ENT: Nares patent NECK: Normal range of motion LUNGS: No respiratory distress Musculoskeletal: Normal range of motion NEUROLOGICAL: Normal speech, normal gait. PSYCH: Normal mood, normal affect. SKIN: Warm, Dry, normal turgor, no rashes or lesions noted. TRAVEL OUTSIDE OF THE [place] IN LAST 30 DAYS: No - Related Data Allergies/Adverse Reactions: cephalexin [From Keflex] Allergy (Verified 03/04/18 17:41) loracarbef [From Lorabid] Allergy (Verified 03/04/18 17:41) NSAIDS (Non-Steroidal Anti-Inflamma Adverse Reaction (Verified 03/04/18 17:41) Past Medical History - Social History Chew tobacco use (# tins/day): No Frequency of alcohol use: None Drug Abuse: None Family history: Arthritis, Malignancy, CAD, DM, Hyperlipidemia, Hypertension - Past Medical History Cardiac Medical History: Reports: Hx DVT, Hx Pulmonary Embolism - Twice Pulmonary Medical History: Reports: Hx Intubation - With trach as a child Renal/ Medical History: Reports: Hx Ovarian Cysts. Denies: Hx Peritoneal Dialysis GI Medical History: Reports: Hx Gastroesophageal Reflux Disease, Hx Ulcerative Colitis, Hx Colonoscopy, Hx Endoscopy Musculoskeltal Medical History: Reports Hx Arthritis, Reports Hx Musculoskeletal Trauma - nose, bilateral ankles, and toe Psychiatric Medical History: Reports: Hx Anxiety, Hx Depression Traumatic Medical History: Reports: Hx Fractures Past Surgical History: Reports: Hx Abdominal Surgery - colostomy/take down multiple bowel surgeries, Hx Bowel Surgery - Multiple bowel surgeries and a J- pouch, Hx Cholecystectomy, Hx Colostomy - Had reversal surgery creating a J- pouch - Immunizations Immunizations up to date: Yes Hx Diphtheria, Pertussis, Tetanus Vaccination: Yes Doctor's Discharge - Discharge Referrals: BRENDAN JAQUEZ MD [Primary Care Provider] - Follow up as needed
[2018-03-04 19:03] LABS: ABSOLUTE BASOPHILS # (AUTO) 0.1 10^3/uL (0.0-0.2); ABSOLUTE EOSINOPHILS # (AUTO) 0.4 10^3/uL (0.0-0.6); ABSOLUTE MONOCYTES (AUTO) 0.5 10^3/uL (0.1-1.4); ABSOLUTE NEUT (AUTO) 7.7 10^3/uL (1.7-8.2); BASOPHILS % (AUTO) 0.6 % (0-2); EOSINOPHILS % (AUTO) 3.4 % (0-6); HEMATOCRIT 42.7 % (36.0-47.0); HEMOGLOBIN 14.2 g/dL (12.0-15.5); LYMPHOCYTES % (AUTO) 18.6 % (13-45); MEAN CORPUSCULAR HGB CONC 33.4 g/dL (32.0-36.0); MEAN CORPUSCULAR VOLUME 84 fl (80-97); MONOCYTES % (AUTO) 4.8 % (3-13); PLATELET COUNT 206 10^3/uL (150-450); RED BLOOD COUNT 5.08 10^6/uL (3.72-5.28); RED CELL DISTRIBUTION WIDTH 15.8 % (11.5-14.0); SEGMENTED NEUTROPHILS % (AUTO) 72.6 % (42-78); TOTAL CELLS COUNTED % (AUTO) 100 %; WHITE BLOOD COUNT 10.6 10^3/uL (4.0-10.5)
[2018-03-04 19:15] LABS: APPEARANCE,URINE CLEAR; BILIRUBIN,URINE NEGATIVE (NEGATIVE); COLOR,URINE YELLOW; GLUCOSE, URINE NEGATIVE (NEGATIVE); KETONES,URINE NEGATIVE (NEGATIVE); LEUKOCYTE ESTERASE,URINE TRACE (NEGATIVE); NITRITE,URINE NEGATIVE (NEGATIVE); PROTEIN,URINE NEGATIVE (NEGATIVE); URINE SPECIFIC GRAVITY 1.016; UROBILINOGEN,URINE NEGATIVE mg/dL (<2.0)
[2018-03-04 19:26] LABS: ALANINE AMINOTRANSFERASE 40 U/L (9-52); ALBUMIN 4.7 g/dL (3.5-5.0); ALKALINE PHOSPHATASE 86 U/L (38-126); ANION GAP 13 (5-19); ASPARTATE AMINO TRANSFERASE 25 U/L (14-36); BILIRUBIN,DIRECT 0.3 mg/dL (0.0-0.4); BILIRUBIN,TOTAL 0.5 mg/dL (0.2-1.3); BLOOD UREA NITROGEN 12 mg/dL (7-20); CALCIUM 10.4 mg/dL (8.4-10.2); CARBON DIOXIDE 28 mmol/L (22-30); CHLORIDE 103 mmol/L (98-107); GLUCOSE 85 mg/dL (75-110); POTASSIUM 4.6 mmol/L (3.6-5.0); SODIUM 144.1 mmol/L (137-145); TOTAL PROTEIN 7.7 g/dL (6.3-8.2)
[2018-03-04 20:48] LABS: INTERNATIONAL RATION (INR) 1.07; PROTHROMBIN TIME 14.4 SEC (11.4-15.4)
[2018-03-04] MEDS ORDERED: ONDANSETRON 4 MG TAB.RAPDIS PO ONE (21:39)
--- NOTE | 2018-03-04 22:47 | ER Document Report ---
ED General - General Chief Complaint: Other Stated Complaint: BLEEDING Time Seen by Provider: 03/04/18 18:15 TRAVEL OUTSIDE OF THE [place] IN LAST 30 DAYS: No - HPI Patient complains to provider of: Bleeding Notes: Patient coming in for evaluation of bleeding. Patient has a history of PEs and was recently changed from Coumadin to Xarelto approximately 16 days ago. Patient states she is currently on her menstrual cycle and having increased flow going through approximately 2-3 tampons every hour. Patient also states having bleeding gums also patient states that she has vomited some blood to as well. Patient states the little bit of nausea however denies any dark stools bloody stools. Patient denies any dizziness chest pain shortness of breath denies any weakness. Patient resting comfortably upon my evaluation. Patient is concerned is that she thinks the bleeding has increased because of the change in medications. Patient is concerned and wonders if she may need to be changed from Xarelto to another medication - Related Data Allergies/Adverse Reactions: cephalexin [From Keflex] Allergy (Verified 03/04/18 17:41) loracarbef [From Lorabid] Allergy (Verified 03/04/18 17:41) NSAIDS (Non-Steroidal Anti-Inflamma Adverse Reaction (Verified 03/04/18 17:41) Past Medical History - Social History Smoking Status: Never Smoker Chew tobacco use (# tins/day): No Frequency of alcohol use: None Drug Abuse: None Family History: Arthritis, CAD, CVA, DM, Hyperlipidemia, Hypertension, Malignancy Patient has suicidal ideation: No Patient has homicidal ideation: No - Past Medical History Cardiac Medical History: Reports: Hx DVT, Hx Pulmonary Embolism - Twice Pulmonary Medical History: Reports: Hx Intubation - With trach as a child Renal/ Medical History: Reports: Hx Ovarian Cysts. Denies: Hx Peritoneal Dialysis GI Medical History: Reports: Hx Gastroesophageal Reflux Disease, Hx Ulcerative Colitis, Hx Colonoscopy, Hx Endoscopy Musculoskeltal Medical History: Reports Hx Arthritis, Reports Hx Musculoskeletal Trauma - nose, bilateral ankles, and toe Psychiatric Medical History: Reports: Hx Anxiety, Hx Depression Traumatic Medical History: Reports: Hx Fractures Past Surgical History: Reports: Hx Abdominal Surgery - colostomy/take down multiple bowel surgeries, Hx Bowel Surgery - Multiple bowel surgeries and a J- pouch, Hx Cholecystectomy, Hx Colostomy - Had reversal surgery creating a J- pouch - Immunizations Immunizations up to date: Yes Hx Diphtheria, Pertussis, Tetanus Vaccination: Yes Review of Systems - Review of Systems Constitutional: No symptoms reported EENT: No symptoms reported Cardiovascular: No symptoms reported Respiratory: No symptoms reported Gastrointestinal: No symptoms reported Genitourinary: No symptoms reported Female Genitourinary: Vaginal bleeding Musculoskeletal: No symptoms reported Skin: No symptoms reported Hematologic/Lymphatic: No symptoms reported Neurological/Psychological: No symptoms reported -: Yes All other systems reviewed and negative Physical Exam - Vital signs Vitals: Resp Pulse Ox 17 100 03/04/18 19:25 03/04/18 19:25 Interpretation: Normal - General General appearance: Appears well, Alert - HEENT Head: Normocephalic, Atraumatic Eyes: Normal Pupils: PERRL - Respiratory Respiratory status: No respiratory distress Chest status: Nontender Breath sounds: Normal Chest palpation: Normal - Cardiovascular Rhythm: Regular Heart sounds: Normal auscultation Murmur: No - Abdominal Inspection: Normal Distension: No distension Bowel sounds: Normal Tenderness: Nontender Organomegaly: No organomegaly - Back Back: Normal, Nontender - Extremities General upper extremity: Normal inspection, Nontender, Normal color, Normal ROM , Normal temperature General lower extremity: Normal inspection, Nontender, Normal color, Normal ROM , Normal temperature, Normal weight bearing. No: Meche's sign - Neurological Neuro grossly intact: Yes Cognition: Normal Orientation: AAOx4 [place] Coma Scale Eye Opening: Spontaneous [place] Coma Scale Verbal: Oriented [place] Coma Scale Motor: Obeys Commands [place] Coma Scale Total: 15 Speech: Normal Motor strength normal: LUE, RUE, LLE, RLE Sensory: Normal - Psychological Associated symptoms: Normal affect, Normal mood - Skin Skin Temperature: Warm Skin Moisture: Dry Skin Color: Normal Course - Re-evaluation Re-evalutation: 03/05/18 04:04 Patient's hemoglobin and hematocrit are otherwise stable. Patient had no vomiting of blood while here in the ER. Gives no history of dark stools bloody stools. Patient examination does not reveal any bleeding oral cavity. Patient' s case was discussed with the insurance processor oncologist Dr. Chavez give multiple scenarios patient currently is near the transition point to daily dosing of Xarelto to continue on with Xarelto and see if the daily dosing will decrease her bleeding. Switch the patient to Eliquis or Pradaxa. Did discuss these options with the patient who agrees to this time stay on Xarelto is that her hemoglobin hematocrit are otherwise stable. Patient was encouraged to follow- up with her insurance processor oncologist - Vital Signs Vital signs: Temp Pulse Resp BP Pulse Ox 20 127/71 H 98 03/04/18 22:00 03/04/18 22:00 03/04/18 22:00 - Laboratory Result Diagrams: 03/04/18 18:50 03/04/18 18:50 Laboratory results interpreted by me: 03/04/18 03/04/18 03/04/18 18:50 18:50 18:50 WBC 10.6 H RDW 15.8 H Calcium 10.4 H Urine Blood MODERATE H Ur Leukocyte Esterase TRACE H Discharge - Discharge Clinical Impression: History of pulmonary embolism, Hemorrhage secondary to anti-coagulation Condition: Good Disposition: HOME, SELF-CARE Additional Instructions: I discussed her case with your insurance processor oncologist Dr. Chavez Multiple options are currently available for you as far as switching agents from Xarelto to Eliquis or Pradaxa also your very near the point that Xarelto goes to once a day dosing. At this time you have chosen to stick with Xarelto. Please continue with your medications as prescribed. Make sure to follow-up with your doctor as scheduled return to ER if any symptoms worsen. At this time your hemoglobin and hematocrit are otherwise stable vital signs are stable to as well Prescriptions: Ondansetron [Zofran Odt] 4 mg PO Q6 PRN #30 tab.rapdis PRN Reason: For Nausea/Vomiting Referrals: BRENDAN CHAVEZ MD [Primary Care Provider] - Follow up in 1 week
[2018-03-04 23:09] VITALS: BP 127/71
== END 2018-03-04 22:45 | disposition home or self-care (01) ==
LOC: ER 17:40
DX: N93.8 Other specified abnormal uterine and vaginal bleeding (principal); Z79.02 Long term (current) use of antithrombotics/antiplatelets; Z86.711 Personal history of pulmonary embolism; Z90.49 Acquired absence of other specified parts of digestive tract; Z93.1 Gastrostomy status
CPT/HCPCS: 99283; 86900; 86901; 36415; 86850; 85025; 85610; 81025; 80053; 81001; S0119; J7030

== ENCOUNTER 2018-04-23 07:49 | Outpatient (CLI) | payer MEDICAID ==
[~2018-04-23 07:49] MED LIST: FERRIC CARBOXYMALTOSE 750 MG in NORMAL SALINE 250 ML IV PRN; NORMAL SALINE 250 ML IV PRN
[2018-04-23 09:04] VITALS: BP 111/55
== END 2018-04-23 10:28 | disposition home or self-care (01) ==
LOC: II 07:49 → 5TH 09:14 → II 10:28
PROVIDERS: ATTEND Internal Medicine Hematology & Oncology
PROC: 3E033GC Introduction of Other Therapeutic Substance into Peripheral Vein, Percutaneous Approach (ICD-10-PCS; principal; 2018-04-23)
DX: D50.8 Other iron deficiency anemias (principal); K90.9 Intestinal malabsorption, unspecified
CPT/HCPCS: 96365; J1439; J7050

== ENCOUNTER 2018-04-30 07:51 | Outpatient (CLI) | payer MEDICAID ==
[2018-04-30 08:36] VITALS: BP 117/70
== END 2018-04-30 09:43 | disposition home or self-care (01) ==
LOC: II 07:51 → 5TH 07:53 → II 09:43
PROVIDERS: ATTEND Internal Medicine Hematology & Oncology
PROC: 3E033GC Introduction of Other Therapeutic Substance into Peripheral Vein, Percutaneous Approach (ICD-10-PCS; principal; 2018-04-30)
DX: D50.9 Iron deficiency anemia, unspecified (principal); K90.9 Intestinal malabsorption, unspecified
CPT/HCPCS: 96365; J7050; J1439

== ENCOUNTER 2018-05-01 21:20 | Emergency (ER) | payer MEDICAID ==
[2018-05-01 22:27] LABS: APPEARANCE,URINE CLEAR; BILIRUBIN,URINE NEGATIVE (NEGATIVE); COLOR,URINE YELLOW; GLUCOSE, URINE NEGATIVE (NEGATIVE); KETONES,URINE NEGATIVE (NEGATIVE); LEUKOCYTE ESTERASE,URINE NEGATIVE (NEGATIVE); NITRITE,URINE NEGATIVE (NEGATIVE); PROTEIN,URINE NEGATIVE (NEGATIVE); URINE SPECIFIC GRAVITY 1.027; UROBILINOGEN,URINE NEGATIVE mg/dL (<2.0)
[2018-05-01] MEDS ORDERED: ONDANSETRON HCL INJ/PF 4 MG/2 ML SDV IV ONE (23:09)
[2018-05-01] MEDS ORDERED: HYDROMORPHONE HCL INJ/PF 2 MG/ML AMPULE IV ONE (23:09)
--- NOTE | 2018-05-01 23:11 | ER Document Report ---
ED General - General Chief Complaint: Abdominal Pain Stated Complaint: ABDOMINAL PAIN/BLOOD IN STOOL Time Seen by Provider: 05/01/18 22:58 Mode of Arrival: Ambulatory Information source: Patient Notes: 22-year-old female with history of ulcerative colitis presents with complaint of abdominal pain, pain with bowel movements, nausea, vomiting, bloating and anal pain and bright red blood per rectum that started 1 day prior to arrival. Patient has a history of pouchitis and anal strictures. She reports that her colostomy was reversed 6 years ago and reformed to a J-pouch. She has had multiple procedures for anal dilation. TRAVEL OUTSIDE OF THE [place] IN LAST 30 DAYS: No - HPI Onset: Yesterday Onset/Duration: Gradual, Worse Quality of pain: Sharp Severity: Moderate Associated symptoms: Diarrhea, Nausea, Vomiting Exacerbated by: Denies Relieved by: Denies Similar symptoms previously: Yes Recently seen / treated by doctor: Yes - Related Data Allergies/Adverse Reactions: cephalexin [From Keflex] Allergy (Verified 03/04/18 17:41) loracarbef [From Lorabid] Allergy (Verified 03/04/18 17:41) NSAIDS (Non-Steroidal Anti-Inflamma Adverse Reaction (Verified 03/04/18 17:41) Past Medical History - General Information source: Patient, Relative, [facility] Records - Social History Smoking Status: Former Smoker Frequency of alcohol use: Occasional Drug Abuse: None Lives with: Family Family History: Arthritis, CAD, CVA, DM, Hyperlipidemia, Hypertension, Malignancy Patient has suicidal ideation: No Patient has homicidal ideation: No - Past Medical History Cardiac Medical History: Reports: Hx DVT, Hx Pulmonary Embolism - Twice Pulmonary Medical History: Reports: Hx Intubation - With trach as a child Renal/ Medical History: Reports: Hx Ovarian Cysts. Denies: Hx Peritoneal Dialysis GI Medical History: Reports: Hx Gastroesophageal Reflux Disease, Hx Ulcerative Colitis, Hx Colonoscopy, Hx Endoscopy Musculoskeletal Medical History: Reports Hx Arthritis, Reports Hx Musculoskeletal Trauma - nose, bilateral ankles, and toe Psychiatric Medical History: Reports: Hx Anxiety, Hx Depression Traumatic Medical History: Reports: Hx Fractures Past Surgical History: Reports: Hx Abdominal Surgery - colostomy/take down multiple bowel surgeries, Hx Bowel Surgery - Multiple bowel surgeries and a J- pouch, Hx Cholecystectomy, Hx Colostomy - Had reversal surgery creating a J- pouch - Immunizations Immunizations up to date: Yes Hx Diphtheria, Pertussis, Tetanus Vaccination: Yes Review of Systems - Review of Systems Notes: REVIEW OF SYSTEMS: CONSTITUTIONAL : Denies fever, chills, or sweats. Denies recent illness. Denies weight loss, recent hospitalizations. EENT: Denies visual changes, eye pain. Denies nasal or sinus congestion or discharge. Denies sore throat, oral lesions, difficulty swallowing. CARDIOVASCULAR: Denies chest pain. Denies palpitations. Denies lower extremity edema. RESPIRATORY: Denies cough, cold, or chest congestion. Denies shortness of breath, wheezing. GASTROINTESTINAL: Denies constipation. GENITOURINARY: Denies difficulty urinating, painful urination, frequency, blood in urine, or vaginal discharge. MUSCULOSKELETAL: Denies back or neck pain or stiffness. Denies joint pain or swelling. SKIN: Denies rash, lesions or sores. HEMATOLOGIC : Denies easy bruising or bleeding. LYMPHATIC: Denies swollen glands. NEUROLOGICAL: Denies confusion or altered mental status. Denies passing out or loss of consciousness. Denies dizziness or lightheadedness. Denies headache. Denies weakness or paralysis. Denies problems difficulty with ambulation, slurred speech. Denies sensory loss, numbness, or tingling. Denies seizures. PSYCHIATRIC: Denies anxiety or stress. Denies depression, suicidal ideation, or homicidal ideation. Denies visual or auditory hallucinations. Physical Exam - Vital signs Vitals: Temp Pulse Resp BP Pulse Ox 98.7 F 92 18 122/72 92 05/01/18 21:26 05/01/18 21:26 05/01/18 21:26 05/01/18 21:26 05/01/18 21:26 - Notes Notes: PHYSICAL EXAMINATION: GENERAL: Well-appearing, well-nourished and in no acute distress. HEAD: Atraumatic, normocephalic. EYES: Pupils equal round and reactive to light, extraocular movements intact, conjunctiva are normal. ENT: Nares patent, oropharynx clear without exudates. Moist mucous membranes. NECK: Normal range of motion, supple without lymphadenopathy LUNGS: Breath sounds clear to auscultation bilaterally and equal. No wheezes rales or rhonchi. HEART: Regular rate and rhythm without murmurs ABDOMEN: Soft, nontender, nondistended abdomen. No guarding, no rebound. No masses appreciated. Female : deferred Musculoskeletal: Normal range of motion, no pitting or edema. No cyanosis. NEUROLOGICAL: Cranial nerves grossly intact. Normal speech, normal gait. Normal sensory, motor exams PSYCH: Normal mood, normal affect. SKIN: Warm, Dry, normal turgor, no rashes or lesions noted. Course - Re-evaluation Re-evalutation: 22-year-old female with history of ulcerative colitis presents with complaint of abdominal pain, pain with bowel movements, nausea, vomiting, bloating and anal pain and bright red blood per rectum that started 1 day prior to arrival. Patient has a history of pouchitis and anal strictures. She reports that her colostomy was reversed 6 years ago and reformed to a J-pouch. She has had multiple procedures for anal dilation. Patient was seen by myself upon arrival. Vital signs were reviewed. Patient is afebrile, normotensive and not hypoxic. Patient does not appear toxic or dehydrated. They are in no acute distress. Previous medical records and nursing notes reviewed. Significant findings include 05/02/18 01:35 Discussed positive test with the patient and the risk of radiation exposure to the fetus with CAT scan although unlikely. Patient is surprised that she is . She states her symptoms make sense now. She is declining pain medication and CAT scan at this time. Has had no vaginal bleeding, discharge. She is currently on control. Patient was provided Phenergan for her nausea. On reevaluation she states her nausea has improved. She is tolerating fluids. She was encouraged to return with any concerning symptoms. Patient is a complicated patient and she would likely need a high school guidance counselor. Patient provided the opportunity to ask questions, and express concerns. Discharge instructions discussed. Patient is agreeable with discharge home. Return indications explained and discussed with the patient who displays understanding. Patient encouraged to return to the emergency department immediately with any concerns. 05/02/18 21:46 05/02/18 21:46 - Vital Signs Vital signs: Temp Pulse Resp BP Pulse Ox 98.3 F 91 14 100/82 100 05/02/18 01:57 05/02/18 01:57 05/02/18 01:57 05/02/18 01:57 05/02/18 01:57 - Laboratory Result Diagrams: 05/02/18 00:40 05/02/18 00:40 Laboratory results interpreted by me: 05/01/18 05/02/1818 22:08 00:40 00:40 RDW 14.6 H Beta HCG, Quant 228.12 H Urine HCG, Qual POSITIVE H Discharge - Discharge Clinical Impression: First trimester , Epigastric abdominal pain Nausea & vomiting Qualifiers: Vomiting type: unspecified Vomiting Intractability: non-intractable Qualified Code(s): R11.2 - Nausea with vomiting, unspecified Condition: Good Disposition: HOME, SELF-CARE Instructions: Antinausea Medication ([facility]), ([facility]), Vomiting ([facility]) Additional Instructions: Follow up with your physician tomorrow for further care or return to the ED IMMEDIATELY if symptoms worsen or new concerns occur. If you cannot afford to follow up with your primary care physician a list of low cost clinics have been provided at the end of your discharge papers as well. Prescriptions: Promethazine HCl [Phenergan 25 mg Tablet] 25 mg PO Q8H #15 tablet Referrals: MARCO ANTONIO VIZCAINO MD [ACTIVE STAFF] - Follow up in 3-5 days
[2018-05-02] MEDS ORDERED: PROMETHAZINE HCL 25 MG TABLET PO ONE (00:16)
[2018-05-02 00:53] LABS: ABSOLUTE BASOPHILS # (AUTO) 0.1 10^3/uL (0.0-0.2); ABSOLUTE EOSINOPHILS # (AUTO) 0.3 10^3/uL (0.0-0.6); ABSOLUTE LYMPHOCYTES (AUTO) 2.1 10^3/uL (0.5-4.7); ABSOLUTE MONOCYTES (AUTO) 0.5 10^3/uL (0.1-1.4); ABSOLUTE NEUT (AUTO) 6.8 10^3/uL (1.7-8.2); BASOPHILS % (AUTO) 0.8 % (0-2); EOSINOPHILS % (AUTO) 2.9 % (0-6); HEMATOCRIT 41.1 % (36.0-47.0); LYMPHOCYTES % (AUTO) 21.7 % (13-45); MEAN CORPUSCULAR HEMOGLOBIN 28.8 pg (27.0-33.4); MEAN CORPUSCULAR HGB CONC 34.1 g/dL (32.0-36.0); MEAN CORPUSCULAR VOLUME 84 fl (80-97); MONOCYTES % (AUTO) 5.4 % (3-13); PLATELET COUNT 222 10^3/uL (150-450); RED BLOOD COUNT 4.88 10^6/uL (3.72-5.28); RED CELL DISTRIBUTION WIDTH 14.6 % (11.5-14.0); SEGMENTED NEUTROPHILS % (AUTO) 69.2 % (42-78); TOTAL CELLS COUNTED % (AUTO) 100 %; WHITE BLOOD COUNT 9.8 10^3/uL (4.0-10.5)
[2018-05-02 01:03] LABS: ALANINE AMINOTRANSFERASE 46 U/L (9-52); ALBUMIN 4.8 g/dL (3.5-5.0); ALKALINE PHOSPHATASE 84 U/L (38-126); ANION GAP 13 (5-19); ASPARTATE AMINO TRANSFERASE 32 U/L (14-36); BILIRUBIN,DIRECT 0.2 mg/dL (0.0-0.4); BILIRUBIN,TOTAL 0.6 mg/dL (0.2-1.3); BLOOD UREA NITROGEN 16 mg/dL (7-20); CALCIUM 9.3 mg/dL (8.4-10.2); CARBON DIOXIDE 23 mmol/L (22-30); CHLORIDE 104 mmol/L (98-107); GLUCOSE 85 mg/dL (75-110); LIPASE 125.4 U/L (23-300); POTASSIUM 4.3 mmol/L (3.6-5.0); SODIUM 139.7 mmol/L (137-145); TOTAL PROTEIN 7.6 g/dL (6.3-8.2)
[2018-05-02 01:59] VITALS: BP 100/82
== END 2018-05-02 02:01 | disposition home or self-care (01) ==
LOC: ER 21:20
DX: O26.891 Other specified pregnancy related conditions, first trimester (principal); R10.13 Epigastric pain; R19.7 Diarrhea, unspecified; O21.9 Vomiting of pregnancy, unspecified; O99.611 Diseases of the digestive system complicating pregnancy, first trimester; K62.5 Hemorrhage of anus and rectum; K62.89 Other specified diseases of anus and rectum; Z3A.00 Weeks of gestation of pregnancy not specified; Z98.890 Other specified postprocedural states; Z88.1 Allergy status to other antibiotic agents; Z87.891 Personal history of nicotine dependence; Z87.19 Personal history of other diseases of the digestive system; Z90.49 Acquired absence of other specified parts of digestive tract; Z79.3 Long term (current) use of hormonal contraceptives
CPT/HCPCS: 99284; 36415; 84702; 83690; 85025; 81025; 80053; 81001; J3490

== ENCOUNTER 2018-05-10 16:31 | Emergency (ER) | payer MEDICAID ==
[2018-05-10 16:36] VITALS: BP 123/72
--- NOTE | 2018-05-10 16:50 | ER Document Report ---
ED Medical Screen (RME) - General Mode of Arrival: Ambulatory Information source: Patient TRAVEL OUTSIDE OF THE [place] IN LAST 30 DAYS: No - General Chief Complaint: Lower Abdominal Pain Stated Complaint: ABDOMINAL PAIN Time Seen by Provider: 05/10/18 16:45 Notes: Patient is a 22 year old female approximately 5 weeks and 5 days presents to the emergency department complaining of abdominal crmaping onset yesterday. Patient states her lower abdominal cramping radiates into her lower back further stating her symptoms are similar to her previous UTI. Patient also states she noticed a small amount of vaginal bleeding. Patient mentions having sexual intercourse a few days ago. GENERAL: Alert, interacts well. No acute distress. HEAD: Normocephalic, Atraumatic. NECK: Full range of motion. Supple. Trachea midline. LUNGS: No respiratory distress. ABDOMEN: Soft, non-tender. Non-distended. Bowel sounds present in all 4 quadrants. EXTREMITIES: Moves all four extremities spontaneously. PSYCH: Normal affect, normal mood. I have greeted and performed a rapid initial assessment of this patient. A comprehensive ED assessment and evaluation of the patient, analysis of test results and completion of the medical decision making process will be conducted by additional ED providers. (SIN BRENNER) - Related Data Allergies/Adverse Reactions: cephalexin [From Keflex] Allergy (Verified 03/04/18 17:41) loracarbef [From Lorabid] Allergy (Verified 03/04/18 17:41) NSAIDS (Non-Steroidal Anti-Inflamma Adverse Reaction (Verified 03/04/18 17:41) Past Medical History - Social History Family history: Arthritis, Malignancy, CAD, DM, Hyperlipidemia, Hypertension - Past Medical History Cardiac Medical History: Reports: Hx DVT, Hx Pulmonary Embolism - Twice Pulmonary Medical History: Reports: Hx Intubation - With trach as a child Renal/ Medical History: Reports: Hx Ovarian Cysts. Denies: Hx Peritoneal Dialysis GI Medical History: Reports: Hx Gastroesophageal Reflux Disease, Hx Ulcerative Colitis, Hx Colonoscopy, Hx Endoscopy Musculoskeltal Medical History: Reports Hx Arthritis, Reports Hx Musculoskeletal Trauma - nose, bilateral ankles, and toe Psychiatric Medical History: Reports: Hx Anxiety, Hx Depression Traumatic Medical History: Reports: Hx Fractures Past Surgical History: Reports: Hx Abdominal Surgery - colostomy/take down multiple bowel surgeries, Hx Bowel Surgery - Multiple bowel surgeries and a J- pouch, Hx Cholecystectomy, Hx Colostomy - Had reversal surgery creating a J- pouch - Immunizations Immunizations up to date: Yes Hx Diphtheria, Pertussis, Tetanus Vaccination: Yes - Vital signs Vitals: Temp Pulse Resp BP Pulse Ox 98.4 F 84 18 123/72 100 05/10/18 16:35 05/10/18 16:35 05/10/18 16:35 05/10/18 16:35 05/10/18 16:35 - Vital Signs Vital signs: Temp Pulse Resp BP Pulse Ox 98.4 F 84 18 123/72 100 05/10/18 16:35 05/10/18 16:35 05/10/18 16:35 05/10/18 16:35 05/10/18 16:35
--- NOTE | 2018-05-10 17:04 | ER Document Report ---
ED General - General Chief Complaint: Lower Abdominal Pain Stated Complaint: ABDOMINAL PAIN Time Seen by Provider: 05/10/18 16:45 Mode of Arrival: Ambulatory TRAVEL OUTSIDE OF THE [place] IN LAST 30 DAYS: No - HPI Notes: Patient is a 22-year-old female approximately 5 weeks and 5 days who presents to the ED complaining of urinary burning, urgency, and frequency times 1-2 days. Patient states that she also started having some mild lower abdominal cramping and light spotting over the last 24 hours. Patient states that her lower back has been aching when she has the cramping, but does not have any abdominal pain or back ache at this time. She is eating and drinking without any difficulties. She is having normal bowel movements. She has not noticed any other vaginal odor or discharge. Patient does have past medical history of UC, UC related surgery, and a PE who is currently on Lovenox. They switched her to Lovenox from [employer] when they found out that she was . No other significant past medical history. Denies any headache, fever, neck pain, URI, sore throat, chest pain, palpitations, syncope, cough, shortness of breath, wheeze, dyspnea, nausea/vomiting/diarrhea, urinary retention, loss of control of bowel or bladder, numbness/tingling, saddle anesthesia, muscle paralysis/weakness, or rash. - Related Data Allergies/Adverse Reactions: cephalexin [From Keflex] Allergy (Verified 03/04/18 17:41) loracarbef [From Lorabid] Allergy (Verified 03/04/18 17:41) NSAIDS (Non-Steroidal Anti-Inflamma Adverse Reaction (Verified 03/04/18 17:41) Past Medical History - General Information source: Patient - Social History Smoking Status: Former Smoker Family History: Arthritis, CAD, CVA, DM, Hyperlipidemia, Hypertension, Malignancy Patient has suicidal ideation: No Patient has homicidal ideation: No - Past Medical History Cardiac Medical History: Reports: Hx DVT, Hx Pulmonary Embolism - Twice Pulmonary Medical History: Reports: Hx Intubation - With trach as a child Renal/ Medical History: Reports: Hx Ovarian Cysts. Denies: Hx Peritoneal Dialysis GI Medical History: Reports: Hx Gastroesophageal Reflux Disease, Hx Ulcerative Colitis, Hx Colonoscopy, Hx Endoscopy Musculoskeletal Medical History: Reports Hx Arthritis, Reports Hx Musculoskeletal Trauma - nose, bilateral ankles, and toe Psychiatric Medical History: Reports: Hx Anxiety, Hx Depression Traumatic Medical History: Reports: Hx Fractures Past Surgical History: Reports: Hx Abdominal Surgery - colostomy/take down multiple bowel surgeries, Hx Bowel Surgery - Multiple bowel surgeries and a J- pouch, Hx Cholecystectomy, Hx Colostomy - Had reversal surgery creating a J- pouch - Immunizations Immunizations up to date: Yes Hx Diphtheria, Pertussis, Tetanus Vaccination: Yes Review of Systems - Review of Systems -: Yes All other systems reviewed and negative Physical Exam - Vital signs Vitals: Temp Pulse Resp BP Pulse Ox 98.4 F 84 18 123/72 100 05/10/18 16:35 05/10/18 16:35 05/10/18 16:35 05/10/18 16:35 05/10/18 16:35 - Notes Notes: PHYSICAL EXAMINATION: GENERAL: Well-appearing, well-nourished and in no acute distress. HEAD: Atraumatic, normocephalic. EYES: Pupils equal round and reactive to light, extraocular movements intact, sclera anicteric, conjunctiva are normal. ENT: Nares patent and without discharge. oropharynx clear without exudates. No tonsilar hypertrophy or erythema. Moist mucous membranes. NECK: Normal range of motion, supple without lymphadenopathy LUNGS: Breath sounds clear to auscultation bilaterally and equal. No wheezes rales or rhonchi. HEART: Regular rate and rhythm without murmurs, rubs, gallops. ABDOMEN: Soft, nontender, nondistended abdomen. No guarding, no rebound. No masses appreciated. Normal bowel sounds present. No CVA tenderness bilaterally. Musculoskeletal: FROM to passive/active. Strength 5+/5. Extremities: No cyanosis, clubbing, or edema b/l. Peripheral pulses 2+. Capillary refill less than 3 seconds. NEUROLOGICAL: Normal speech, normal gait. PSYCH: Normal mood, normal affect. SKIN: Warm, Dry, normal turgor, no rashes or lesions noted. Course - Re-evaluation Re-evalutation: 05/10/18 19:05 Patient is an afebrile, well-hydrated, 22-year-old female who presents to the ED with bleeding during early and pelvic pain in early . Vitals are acceptable without any significant tachycardia, tachypnea, or hypoxia. PE is otherwise unremarkable. CBC, CMP, urinalysis are unremarkable for any acute pathology at this time. Quantitative hCG is appropriate for transvaginal ultrasound findings. Transvaginal ultrasound showed an intrauterine with yolk sac, no pole, at estimated age of 5wks 5 days. patient is nontoxic-appearing is tolerating p.o. without any difficulties. No other labs or imaging warranted at this time based on H&P. Low suspicion/risk for acute appendicitis, bowel obstruction, acute cholecystitis, acute cholangitis, perforated diverticulitis, incarcerated hernia , pancreatitis, perforated ulcer, peritonitis, sepsis, pelvic inflammatory disease, ectopic , tubo-ovarian abscess, ovarian torsion, or other systemic emergent condition at this time. Patient is aware that her condition can change from initial presentation and she needs to monitor symptoms closely and seek medical attention if any acute changes. I will send her home with prescription for zofran. Conservative measures otherwise for symptoms. Recheck with your PCM/OBGYN in 3-5 days. Return to the ED with any worsening/ concerning symptoms otherwise as reviewed in discharge. Patient is in agreement. - Vital Signs Vital signs: Temp Pulse Resp BP Pulse Ox 98.4 F 84 18 123/72 100 05/10/18 16:35 05/10/18 16:35 05/10/18 16:35 05/10/18 16:35 05/10/18 16:35 - Laboratory Result Diagrams: 05/10/18 18:17 05/10/18 18:17 Laboratory results interpreted by me: 05/10/18 05/10/18 18:17 18:17 RDW 15.6 H AST 52 H ALT 74 H Beta HCG, Quant 5813.40 H Discharge - Discharge Clinical Impression: Bleeding in early Pelvic pain affecting Qualifiers: Trimester: first trimester Qualified Code(s): O26.891 - Other specified related conditions, first trimester Condition: Stable Disposition: HOME, SELF-CARE Instructions: Bleeding During Early ([facility]), Pelvic Pain in ( [facility]) Additional Instructions: Maintain fluid intake Proper hygenic technique Keep the skin clean Tylenol/ibuprofen as needed Return immediately if symptoms worsen F/u with your PCM/OBGYN in 3-5 days for a recheck Return to the ED with any development of CRAIG/fever, trouble with vision, eye redness, worsening pain, urethral discharge, urinary retention, blood in the urine, flank pain, abdominal pain, n/v, Chest Pain, shortness of breath, joint pains, trouble breathing, or any other worsening/concerning symptoms as needed otherwise. Prescriptions: Ondansetron [Zofran Odt 4 mg Tablet] 1 - 2 tab PO Q4H PRN #15 tab.rapdis PRN Reason: For Nausea/Vomiting Referrals: LUZ MARINA BARNARD PA-C [Primary Care Provider] - Follow up as needed [facility] [Provider Group] - Follow up in 3-5 days
[2018-05-10 17:20] LABS: APPEARANCE,URINE CLEAR; BILIRUBIN,URINE NEGATIVE (NEGATIVE); COLOR,URINE STRAW; GLUCOSE, URINE NEGATIVE (NEGATIVE); KETONES,URINE NEGATIVE (NEGATIVE); LEUKOCYTE ESTERASE,URINE NEGATIVE (NEGATIVE); NITRITE,URINE NEGATIVE (NEGATIVE); PROTEIN,URINE NEGATIVE (NEGATIVE); URINE SPECIFIC GRAVITY 1.005; UROBILINOGEN,URINE NEGATIVE mg/dL (<2.0)
--- NOTE | 2018-05-10 17:42 | RADIOLOGY REPORT (SQ) ---
EXAM DESCRIPTION: U/S OB TRANSVAG W/DOPPLER COMPLETED DATE/TIME: 05/10/2018 5:27 pm REASON FOR STUDY: cramping, 6 wks preg, spotting COMPARISON: None. TECHNIQUE: Transvaginal static and realtime grayscale images acquired of the pelvis. Additional rupa cted spectral and color Doppler images recorded. All images stored on PACs. bHCG: Not available. CLINICAL DATES: 5 weeks 5 days LIMITATIONS: None. FINDINGS: Early intrauterine comment yolk sac identified. pole not identified at th is time. . ULTRASOUND EGA: 5 weeks 5 days SUBCHORIONIC BLEED: No. SIZE OF BLEED: Not applicable. UTERUS: No masses. No anomalies. CERVICAL LENGTH: 2.9 cm Closed. RIGHT ADNEXA: Normal ovary with normal vascular flow. No adnexal free fluid. No adnexal masses. LEFT ADNEXA: Normal ovary with normal vascular flow. No adnexal free fluid. No adnexal masses. FREE FLUID: None. OTHER: No other significant finding. IMPRESSION: Early intrauterine comment yolk sac identified. pole not identified at this time. . ULTRASOUND EGA: 5 weeks 5 days Trimester of : First - 0 to 13 weeks. TECHNICAL DOCUMENTATION: JOB ID: [id number] [place]-72 2010 [employer]- All Rights Reserved rev Reading location - IP/workstation name: [email or web address]
[2018-05-10 18:32] LABS: ABSOLUTE EOSINOPHILS # (AUTO) 0.2 10^3/uL (0.0-0.6); ABSOLUTE LYMPHOCYTES (AUTO) 1.5 10^3/uL (0.5-4.7); ABSOLUTE MONOCYTES (AUTO) 0.5 10^3/uL (0.1-1.4); ABSOLUTE NEUT (AUTO) 5.9 10^3/uL (1.7-8.2); BASOPHILS % (AUTO) 0.5 % (0-2); EOSINOPHILS % (AUTO) 2.5 % (0-6); HEMATOCRIT 39.8 % (36.0-47.0); HEMOGLOBIN 13.5 g/dL (12.0-15.5); LYMPHOCYTES % (AUTO) 18.5 % (13-45); MEAN CORPUSCULAR HEMOGLOBIN 29.3 pg (27.0-33.4); MEAN CORPUSCULAR HGB CONC 33.9 g/dL (32.0-36.0); MEAN CORPUSCULAR VOLUME 87 fl (80-97); MONOCYTES % (AUTO) 6.1 % (3-13); PLATELET COUNT 185 10^3/uL (150-450); RED BLOOD COUNT 4.61 10^6/uL (3.72-5.28); RED CELL DISTRIBUTION WIDTH 15.6 % (11.5-14.0); SEGMENTED NEUTROPHILS % (AUTO) 72.4 % (42-78); TOTAL CELLS COUNTED % (AUTO) 100 %; WHITE BLOOD COUNT 8.1 10^3/uL (4.0-10.5)
[2018-05-10 18:33] LABS: PROTHROMBIN TIME 13.7 SEC (11.4-15.4)
[2018-05-10 18:34] LABS: PARTIAL THROMBOPLASTIN TIME 29.6 SEC (23.5-35.8)
[2018-05-10 18:51] LABS: ALANINE AMINOTRANSFERASE 74 U/L (9-52); ALBUMIN 4.4 g/dL (3.5-5.0); ALKALINE PHOSPHATASE 68 U/L (38-126); ANION GAP 12 (5-19); ASPARTATE AMINO TRANSFERASE 52 U/L (14-36); BILIRUBIN,DIRECT 0.2 mg/dL (0.0-0.4); BILIRUBIN,TOTAL 0.6 mg/dL (0.2-1.3); BLOOD UREA NITROGEN 10 mg/dL (7-20); CALCIUM 9.5 mg/dL (8.4-10.2); CARBON DIOXIDE 23 mmol/L (22-30); CHLORIDE 104 mmol/L (98-107); GLUCOSE 82 mg/dL (75-110); POTASSIUM 4.4 mmol/L (3.6-5.0); TOTAL PROTEIN 7.1 g/dL (6.3-8.2)
== END 2018-05-10 19:26 | disposition home or self-care (01) ==
LOC: ER 16:31
DX: O26.851 Spotting complicating pregnancy, first trimester (principal); O26.891 Other specified pregnancy related conditions, first trimester; R10.2 Pelvic and perineal pain; R39.15 Urgency of urination; Z3A.00 Weeks of gestation of pregnancy not specified; Z86.711 Personal history of pulmonary embolism; Z79.01 Long term (current) use of anticoagulants; Z88.1 Allergy status to other antibiotic agents; Z87.891 Personal history of nicotine dependence
CPT/HCPCS: 36415; 76817; 80053; 81001; 84702; 85025; 85610; 85730; 87086; 93976; 99284

== ENCOUNTER 2018-05-28 20:27 | Emergency (ER) | payer MEDICAID ==
[2018-05-28] MEDS ORDERED: DIPHENHYDRAMINE HCL 25 MG CAPSULE PO ONE (22:43)
[2018-05-28] MEDS ORDERED: ACETAMINOPHEN 325 MG TABLET PO ONE (22:44)
[2018-05-28] MEDS ORDERED: LIDOCAINE 1% INJ-PF (10 MG/ML) 30 ML SDV NEB ONE (22:44)
--- NOTE | 2018-05-28 22:49 | ER Document Report ---
ED General - General Chief Complaint: Flu Symptoms Stated Complaint: SORE THROAT Time Seen by Provider: 05/28/18 21:19 Notes: Patient is an otherwise healthy 22-year-old female who presents with chief complaint of headache, sore throat, body aches, low-grade fever runny nose and cough for 2 days. Patient reports that she is approximately 8 weeks . TRAVEL OUTSIDE OF THE [place] IN LAST 30 DAYS: No - Related Data Allergies/Adverse Reactions: cephalexin [From Keflex] Allergy (Verified 03/04/18 17:41) loracarbef [From Lorabid] Allergy (Verified 03/04/18 17:41) NSAIDS (Non-Steroidal Anti-Inflamma Adverse Reaction (Verified 03/04/18 17:41) Past Medical History - General Information source: Patient - Social History Smoking Status: Former Smoker Frequency of alcohol use: None Drug Abuse: None Family History: Arthritis, CAD, CVA, DM, Hyperlipidemia, Hypertension, Malignancy Patient has suicidal ideation: No Patient has homicidal ideation: No - Past Medical History Cardiac Medical History: Reports: Hx DVT, Hx Pulmonary Embolism - Twice Pulmonary Medical History: Reports: Hx Intubation - With trach as a child Renal/ Medical History: Reports: Hx Ovarian Cysts. Denies: Hx Peritoneal Dialysis GI Medical History: Reports: Hx Gastroesophageal Reflux Disease, Hx Ulcerative Colitis, Hx Colonoscopy, Hx Endoscopy Musculoskeletal Medical History: Reports Hx Arthritis, Reports Hx Musculoskeletal Trauma - nose, bilateral ankles, and toe Psychiatric Medical History: Reports: Hx Anxiety, Hx Depression Traumatic Medical History: Reports: Hx Fractures Past Surgical History: Reports: Hx Abdominal Surgery - colostomy/take down multiple bowel surgeries, Hx Bowel Surgery - Multiple bowel surgeries and a J- pouch, Hx Cholecystectomy, Hx Colostomy - Had reversal surgery creating a J- pouch - Immunizations Immunizations up to date: Yes Hx Diphtheria, Pertussis, Tetanus Vaccination: Yes Review of Systems - Review of Systems Constitutional: No symptoms reported EENT: See HPI Cardiovascular: No symptoms reported Respiratory: No symptoms reported Gastrointestinal: No symptoms reported Genitourinary: No symptoms reported Female Genitourinary: No symptoms reported Musculoskeletal: No symptoms reported Skin: No symptoms reported Hematologic/Lymphatic: No symptoms reported Neurological/Psychological: No symptoms reported Physical Exam - Vital signs Vitals: Temp Pulse Resp BP Pulse Ox 98 F 87 18 114/71 99 05/28/18 20:28 05/28/18 20:28 05/28/18 20:28 05/28/18 20:28 05/28/18 20:28 - Notes Notes: PHYSICAL EXAMINATION: GENERAL: Well-appearing, well-nourished and in no acute distress. HEAD: Atraumatic, normocephalic. EYES: Pupils equal round and reactive to light, extraocular movements intact, conjunctiva are normal. ENT: Nares patent, oropharynx mildly erythematous without exudates, cobblestoning pattern noted. Moist mucous membranes. NECK: Normal range of motion, supple without lymphadenopathy LUNGS: Breath sounds clear to auscultation bilaterally and equal. No wheezes rales or rhonchi. HEART: Regular rate and rhythm without murmurs ABDOMEN: Soft, nontender, nondistended abdomen. No guarding, no rebound. No masses appreciated. Female : deferred Musculoskeletal: Normal range of motion, no pitting or edema. No cyanosis. NEUROLOGICAL: Cranial nerves grossly intact. Normal speech, normal gait. Normal sensory, motor exams PSYCH: Normal mood, normal affect. SKIN: Warm, Dry, normal turgor, no rashes or lesions noted. Course - Re-evaluation Re-evalutation: Rapid strep is negative. Patient given Benadryl for her headache and nasal congestion as well as Tylenol. Patient will be discharged home with likely viral upper respiratory illness. Patient encouraged to follow-up with her OB. - Vital Signs Vital signs: Temp Pulse Resp BP Pulse Ox 98 F 87 18 114/71 99 05/28/18 20:28 05/28/18 20:28 05/28/18 20:28 05/28/18 20:28 05/28/18 20:28 Discharge - Discharge Clinical Impression: Viral syndrome Condition: Stable Disposition: HOME, SELF-CARE Additional Instructions: Viral Syndrome The physician has diagnosed a viral infection. Viruses not only cause "colds," but can cause many different symptoms including generalized aching, fever, headache, cough, diarrhea, nausea, vomiting, and fatigue. The treatment, for the most part, is simply relief of symptoms. This means that antibiotics are usually not given. Rest, fluids, pain medications and, occasionally, medication for the specific symptoms that are most bothersome will be prescribed. Use good handwashing to avoid passing the virus to others. Shared toys should be cleaned with disinfectant. Clean the toilets, sinks, and counter surfaces in bathrooms. Launder clothing in hot water. Contact the physician if you develop any new or unusual symptoms such as severe headache, stiff neck, high fever, chest pain, productive cough, or shortness of breath. You should be rechecked if you don't see marked improvement within seven to 10 days. Both Tylenol and Benadryl are safe during . Please take these for symptomatic relief of your symptoms. Your rapid strep was negative today, it will be sent for a culture and we will call you if anything abnormal results. Please follow-up with your primary care provider or PROJECT BUILDER. Forms: Return to Work Referrals: LUZ MARINA BARNARD PA-C [Primary Care Provider] - Follow up as needed
[2018-05-29] VITALS: BP 118/75
== END 2018-05-28 23:54 | disposition home or self-care (01) ==
LOC: ER 20:27
DX: O98.519 Other viral diseases complicating pregnancy, unspecified trimester (principal); O99.519 Diseases of the respiratory system complicating pregnancy, unspecified trimester; J02.9 Acute pharyngitis, unspecified; O26.899 Other specified pregnancy related conditions, unspecified trimester; R51 Headache; R05 Cough; R50.9 Fever, unspecified; R09.81 Nasal congestion; R09.89 Other specified symptoms and signs involving the circulatory and respiratory systems; Z88.1 Allergy status to other antibiotic agents; Z87.891 Personal history of nicotine dependence; Z3A.00 Weeks of gestation of pregnancy not specified
CPT/HCPCS: 94640; 99283; 87070; 87880; J3490 ×3

== ENCOUNTER 2018-07-29 08:11 | Emergency (ER) | payer MEDICAID ==
[2018-07-29] MEDS ORDERED: NORMAL SALINE 1000 ML 1,000 ML IV ONE (09:27)
[2018-07-29] MEDS ORDERED: METOCLOPRAMIDE HCL INJ/PF 10 MG/2 ML SDV IV ONE (09:27)
[2018-07-29] MEDS ORDERED: DIPHENHYDRAMINE HCL 50 MG/ML VIAL IV ONE (09:27)
--- NOTE | 2018-07-29 09:29 | ER Document Report ---
ED Medical Screen (RME) - General Chief Complaint: Headache Stated Complaint: HEADACHE Time Seen by Provider: 07/29/18 09:23 TRAVEL OUTSIDE OF THE [place] IN LAST 30 DAYS: No - HPI Notes: 07/29/18 09:28 with headache top of the head ongoing for 4 days Tylenol initially helping now no improvement with Tylenol nauseous and vomiting patient was on Zofran no longer has any Zofran - Related Data Allergies/Adverse Reactions: cephalexin [From Keflex] Allergy (Verified 07/29/18 08:15) loracarbef [From Lorabid] Allergy (Verified 07/29/18 08:15) NSAIDS (Non-Steroidal Anti-Inflamma Adverse Reaction (Verified 07/29/18 08:15) Past Medical History - Social History Family history: Arthritis, Malignancy, CAD, DM, Hyperlipidemia, Hypertension - Past Medical History Cardiac Medical History: Reports: Hx DVT, Hx Pulmonary Embolism - Twice Pulmonary Medical History: Reports: Hx Intubation - With trach as a child Renal/ Medical History: Reports: Hx Ovarian Cysts. Denies: Hx Peritoneal Dialysis GI Medical History: Reports: Hx Gastroesophageal Reflux Disease, Hx Ulcerative Colitis, Hx Colonoscopy, Hx Endoscopy Musculoskeltal Medical History: Reports Hx Arthritis, Reports Hx Musculoskeletal Trauma - nose, bilateral ankles, and toe Psychiatric Medical History: Reports: Hx Anxiety, Hx Depression Traumatic Medical History: Reports: Hx Fractures Past Surgical History: Reports: Hx Abdominal Surgery - colostomy/take down multiple bowel surgeries, Hx Bowel Surgery - Multiple bowel surgeries and a J- pouch, Hx Cholecystectomy, Hx Colostomy - Had reversal surgery creating a J- pouch - Immunizations Immunizations up to date: Yes Hx Diphtheria, Pertussis, Tetanus Vaccination: Yes Review of Systems - Review of Systems Neurological/Psychological: Headaches Physical Exam - Vital signs Vitals: Temp Pulse Resp BP Pulse Ox 99.2 F 105 H 16 130/75 H 98 07/29/18 08:20 07/29/18 08:20 07/29/18 08:20 07/29/18 08:20 07/29/18 08:20 - Respiratory Respiratory status: No respiratory distress Chest status: Nontender Breath sounds: Normal Chest palpation: Normal - Cardiovascular Rhythm: Regular Heart sounds: Normal auscultation Course - Vital Signs Vital signs: Temp Pulse Resp BP Pulse Ox 99.2 F 105 H 16 130/75 H 98 07/29/18 08:20 07/29/18 08:20 07/29/18 08:20 07/29/18 08:20 07/29/18 08:20 Doctor's Discharge - Discharge Referrals: LUZ MARINA BARNARD PA-C [Primary Care Provider] - Follow up as needed
--- NOTE | 2018-07-29 09:40 | ER Document Report ---
ED Headache - General Chief Complaint: Headache Stated Complaint: HEADACHE Time Seen by Provider: 07/29/18 09:23 Mode of Arrival: Ambulatory Information source: Patient Notes: 22 yo female 17 weeks pregnanct c/o frontal top of head headache with light sensitivity since yesterday. Tylenol dulls it but today had nausea and vomit once. No abd or pelvic pain, no vag bleeding, no dysuria. No fever. No parathesias or dizziness. TRAVEL OUTSIDE OF THE [place] IN LAST 30 DAYS: No - Related Data Allergies/Adverse Reactions: cephalexin [From Keflex] Allergy (Verified 07/29/18 08:15) loracarbef [From Lorabid] Allergy (Verified 07/29/18 08:15) NSAIDS (Non-Steroidal Anti-Inflamma Adverse Reaction (Verified 07/29/18 08:15) Past Medical History - General Information source: Patient - Social History Smoking Status: Former Smoker Chew tobacco use (# tins/day): No Frequency of alcohol use: None Drug Abuse: None Lives with: Family Family History: Arthritis, CAD, CVA, DM, Hyperlipidemia, Hypertension, Malignancy Patient has suicidal ideation: No Patient has homicidal ideation: No - Past Medical History Cardiac Medical History: Reports: Hx DVT, Hx Pulmonary Embolism - Twice Pulmonary Medical History: Reports: Hx Intubation - With trach as a child Renal/ Medical History: Reports: Hx Ovarian Cysts GI Medical History: Reports: Hx Gastroesophageal Reflux Disease, Hx Ulcerative Colitis, Hx Colonoscopy, Hx Endoscopy Musculoskeletal Medical History: Reports Hx Arthritis, Reports Hx Musculoskeletal Trauma - nose, bilateral ankles, and toe Psychiatric Medical History: Reports: Hx Anxiety, Hx Depression Traumatic Medical History: Reports: Hx Fractures Past Surgical History: Reports: Hx Abdominal Surgery - colostomy/take down multiple bowel surgeries, Hx Bowel Surgery - Multiple bowel surgeries and a J- pouch, Hx Cholecystectomy, Hx Colostomy - Had reversal surgery creating a J- pouch - Immunizations Immunizations up to date: Yes Hx Diphtheria, Pertussis, Tetanus Vaccination: Yes Review of Systems - Review of Systems Constitutional: No symptoms reported EENT: No symptoms reported Cardiovascular: No symptoms reported Respiratory: No symptoms reported Gastrointestinal: See HPI Genitourinary: No symptoms reported Female Genitourinary: No symptoms reported Musculoskeletal: No symptoms reported Skin: No symptoms reported Hematologic/Lymphatic: No symptoms reported Neurological/Psychological: See HPI Physical Exam - Vital signs Vitals: Temp Pulse Resp BP Pulse Ox 99.2 F 105 H 16 130/75 H 98 07/29/18 08:20 07/29/18 08:20 07/29/18 08:20 07/29/18 08:20 07/29/18 08:20 Interpretation: Normal - Notes Notes: looks dry, covering eyes with blanket - General General appearance: Appears well, Alert - HEENT Head: Normocephalic, Atraumatic Eyes: Normal Pupils: PERRL - Respiratory Respiratory status: No respiratory distress Chest status: Nontender Breath sounds: Normal Chest palpation: Normal - Cardiovascular Rhythm: Regular Heart sounds: Normal auscultation Murmur: No - Abdominal Inspection: Normal Distension: No distension Bowel sounds: Normal Tenderness: Nontender Organomegaly: Other - fundu FHT 155 - Back Back: Normal, Nontender. No: CVA tenderness - Extremities General upper extremity: Normal inspection, Nontender, Normal color, Normal ROM , Normal temperature General lower extremity: Normal inspection, Nontender, Normal color, Normal ROM , Normal temperature, Normal weight bearing. No: Meche's sign - Neurological Neuro grossly intact: Yes Cognition: Normal Orientation: AAOx4 [place] Coma Scale Eye Opening: Spontaneous [place] Coma Scale Verbal: Oriented [place] Coma Scale Motor: Obeys Commands [place] Coma Scale Total: 15 Speech: Normal Motor strength normal: LUE, RUE, LLE, RLE Sensory: Normal - Psychological Associated symptoms: Normal affect, Normal mood - Skin Skin Temperature: Warm Skin Moisture: Dry Skin Color: Normal Course - Re-evaluation Re-evalutation: 07/29/18 12:18 Patient has had 2 bags of IV fluid and she has been drinking liquids. No more nausea. She feels a lot better she feels like she go home. She still has a mild headache. heart tones were 155. CBC is normal, chemistry is normal , urine is pending. 07/29/18 12:19 07/29/18 13:05 Urinalysis is dilute at 1.006, 1+ bacteria and 3 WBCs. Added urine culture. Do not think this is a urinary tract infection. 07/29/18 13:05 - Vital Signs Vital signs: Temp Pulse Resp BP Pulse Ox 99.3 F 86 16 109/59 L 98 07/29/18 14:19 07/29/18 14:19 07/29/18 14:19 07/29/18 14:19 07/29/18 14:19 - Laboratory Result Diagrams: 07/29/18 10:01 07/29/18 10:01 Laboratory results interpreted by me: 07/29/18 07/29/18 10:01 10:01 RDW 14.8 H Sodium 134.3 L BUN 6 L Creatinine 0.49 L Beta HCG, Quant 84942.00 H Discharge - Discharge Clinical Impression: Headache, Vomiting, 17 weeks Condition: Good Disposition: HOME, SELF-CARE Additional Instructions: Tylenol up to 4000 mg for headache See INFORMATION OFFICER tomorrow for recheck Return to the emergency room any concerns Urine culture is pending Drink plenty of fluids at least 2 L of water a day Forms: Return to Work Referrals: BAILEY MAURICIO MD [ACTIVE STAFF] - Follow up tomorrow
[2018-07-29] MEDS ORDERED: DIPHENHYDRAMINE HCL 25 MG CAPSULE PO ONE (09:47)
[2018-07-29] MEDS ORDERED: RINGERS SOLUTION,LACTATED 1,000 ML IV PRN (09:56)
[2018-07-29] MEDS ORDERED: ACETAMINOPHEN 325 MG TABLET PO ONE (10:00)
[2018-07-29 10:38] LABS: ABSOLUTE EOSINOPHILS # (AUTO) 0.2 10^3/uL (0.0-0.6); ABSOLUTE LYMPHOCYTES (AUTO) 1.7 10^3/uL (0.5-4.7); ABSOLUTE MONOCYTES (AUTO) 0.5 10^3/uL (0.1-1.4); ABSOLUTE NEUT (AUTO) 8.1 10^3/uL (1.7-8.2); BASOPHILS % (AUTO) 0.3 % (0-2); EOSINOPHILS % (AUTO) 2.1 % (0-6); HEMATOCRIT 38.6 % (36.0-47.0); HEMOGLOBIN 13.4 g/dL (12.0-15.5); LYMPHOCYTES % (AUTO) 15.8 % (13-45); MEAN CORPUSCULAR HEMOGLOBIN 30.6 pg (27.0-33.4); MEAN CORPUSCULAR HGB CONC 34.8 g/dL (32.0-36.0); MEAN CORPUSCULAR VOLUME 88 fl (80-97); MONOCYTES % (AUTO) 4.8 % (3-13); PLATELET COUNT 177 10^3/uL (150-450); RED BLOOD COUNT 4.39 10^6/uL (3.72-5.28); RED CELL DISTRIBUTION WIDTH 14.8 % (11.5-14.0); TOTAL CELLS COUNTED % (AUTO) 100 %; WHITE BLOOD COUNT 10.5 10^3/uL (4.0-10.5)
[2018-07-29 11:25] LABS: ANION GAP 9 (5-19); BLOOD UREA NITROGEN 6 mg/dL (7-20); CALCIUM 9.8 mg/dL (8.4-10.2); CARBON DIOXIDE 23 mmol/L (22-30); CHLORIDE 102 mmol/L (98-107); GLUCOSE 85 mg/dL (75-110); POTASSIUM 4.6 mmol/L (3.6-5.0); SODIUM 134.3 mmol/L (137-145)
[2018-07-29 12:19] LABS: APPEARANCE,URINE CLEAR; BILIRUBIN,URINE NEGATIVE (NEGATIVE); COLOR,URINE STRAW; GLUCOSE, URINE NEGATIVE (NEGATIVE); KETONES,URINE NEGATIVE (NEGATIVE); LEUKOCYTE ESTERASE,URINE NEGATIVE (NEGATIVE); NITRITE,URINE NEGATIVE (NEGATIVE); PROTEIN,URINE NEGATIVE (NEGATIVE); URINE SPECIFIC GRAVITY 1.009; UROBILINOGEN,URINE NEGATIVE mg/dL (<2.0)
[2018-07-29 14:22] VITALS: BP 109/59
== END 2018-07-29 14:21 | disposition home or self-care (01) ==
LOC: ER 08:11
DX: O21.9 Vomiting of pregnancy, unspecified (principal); O26.892 Other specified pregnancy related conditions, second trimester; R51 Headache; Z87.891 Personal history of nicotine dependence; Z3A.17 17 weeks gestation of pregnancy
CPT/HCPCS: 99284; 96361; 96374; 36415; 87086; 84702; 85025; 80048; 81001; J3490 ×2; J2765; J7030; J7120

== ENCOUNTER 2018-10-06 19:46 | Emergency (ER) | payer MEDICAID ==
--- NOTE | 2018-10-06 22:46 | ER Document Report ---
ED Medical Screen (RME) - General Chief Complaint: Breathing Difficulty Stated Complaint: ABDOMINAL PAIN Time Seen by Provider: 10/06/18 22:16 Notes: Patient is a 22-year-old female who presents to the emergency department with a chief complaint of difficulty breathing and a sore throat. She states that her symptoms started 2 days ago. She has been having a hard time drinking and staying hydrated because her throat hurts. She is 27 weeks and has been complaining of cramping.. TRAVEL OUTSIDE OF THE [place] IN LAST 30 DAYS: No - Related Data Allergies/Adverse Reactions: cephalexin [From Keflex] Allergy (Verified 07/29/18 08:15) loracarbef [From Lorabid] Allergy (Verified 07/29/18 08:15) NSAIDS (Non-Steroidal Anti-Inflamma Adverse Reaction (Verified 07/29/18 08:15) Past Medical History - Social History Family history: Arthritis, Malignancy, CAD, DM, Hyperlipidemia, Hypertension - Past Medical History Cardiac Medical History: Reports: Hx DVT, Hx Pulmonary Embolism - Twice Pulmonary Medical History: Reports: Hx Intubation - With trach as a child Renal/ Medical History: Reports: Hx Ovarian Cysts. Denies: Hx Peritoneal Dialysis GI Medical History: Reports: Hx Gastroesophageal Reflux Disease, Hx Ulcerative Colitis, Hx Colonoscopy, Hx Endoscopy Musculoskeltal Medical History: Reports Hx Arthritis, Reports Hx Musculoskeletal Trauma - nose, bilateral ankles, and toe Psychiatric Medical History: Reports: Hx Anxiety, Hx Depression Traumatic Medical History: Reports: Hx Fractures Past Surgical History: Reports: Hx Abdominal Surgery - colostomy/take down multiple bowel surgeries, Hx Bowel Surgery - Multiple bowel surgeries and a J- pouch, Hx Cholecystectomy, Hx Colostomy - Had reversal surgery creating a J- pouch - Immunizations Immunizations up to date: Yes Hx Diphtheria, Pertussis, Tetanus Vaccination: Yes Physical Exam - Vital signs Vitals: Temp Pulse Resp BP Pulse Ox 99.4 F 98 23 H 119/68 98 10/06/18 20:16 10/06/18 20:16 10/06/18 20:16 10/06/18 20:16 10/06/18 20:16 - Respiratory Respiratory status: No respiratory distress Breath sounds: Normal Course - Vital Signs Vital signs: Temp Pulse Resp BP Pulse Ox 98.0 F 85 20 110/57 L 99 10/07/18 04:02 10/07/18 04:02 10/07/18 04:02 10/07/18 04:02 10/07/18 04:02 Doctor's Discharge - Discharge Clinical Impression: Sore throat (viral), Viral syndrome Condition: Good Disposition: HOME, SELF-CARE Instructions: Acetaminophen, Viral Syndrome ([facility]) Additional Instructions: Please follow-up with your pipe chipper next week as scheduled. Take your medications as prescribed. Return to the emergency department if you experience high fevers uncontrolled with Tylenol, difficulty breathing, abdominal pain with vaginal bleeding/discharge, or have any other concerning symptom. Prescriptions: Hydrocodone/Chlorphen P-Stirex [Tussionex Pennkinetic Susp] 10 ml PO BID PRN #[id number] [email or web address] PRN Reason: Cough Referrals: LUZ MARINA BARNARD PA-C [Primary Care Provider] - Follow up as needed Print Language: Vietnamese
[2018-10-06] MEDS ORDERED: RINGERS SOLUTION,LACTATED 1,000 ML IV ONE (22:47)
--- NOTE | 2018-10-07 00:57 | ER Document Report ---
ED General - General Chief Complaint: Breathing Difficulty Stated Complaint: ABDOMINAL PAIN Time Seen by Provider: 10/07/18 00:57 Mode of Arrival: Ambulatory Information source: Patient Notes: Patient is a 22-year-old female with no significant past medical history who presents with 3-4 days of sore throat and a nonproductive cough. Patient states that her sore throat began first, hurts to swallow, this was followed by a nonproductive cough and hoarseness. She denies chest pain, no shortness of breath, no injury to her knowledge. She denies known sick contacts. TRAVEL OUTSIDE OF THE [place] IN LAST 30 DAYS: No - HPI Onset: Other - 3 days ago Onset/Duration: Gradual Quality of pain: Achy, Dull Severity: Mild Pain Level: Denies Associated symptoms: Nonproductive cough, Hoarseness, Sinus pain/drainage, Sore throat. denies: Fever Exacerbated by: Denies Relieved by: Denies Similar symptoms previously: No Recently seen / treated by doctor: No - Related Data Allergies/Adverse Reactions: cephalexin [From Keflex] Allergy (Verified 07/29/18 08:15) loracarbef [From Lorabid] Allergy (Verified 07/29/18 08:15) NSAIDS (Non-Steroidal Anti-Inflamma Adverse Reaction (Verified 07/29/18 08:15) Past Medical History - General Information source: Patient - Social History Smoking Status: Never Smoker Chew tobacco use (# tins/day): No Frequency of alcohol use: None Drug Abuse: None Lives with: Family Family History: Arthritis, CAD, CVA, DM, Hyperlipidemia, Hypertension, Malignancy - Past Medical History Cardiac Medical History: Reports: Hx DVT, Hx Pulmonary Embolism - Twice Pulmonary Medical History: Reports: Hx Intubation - With trach as a child EENT Medical History: Reports: None Neurological Medical History: Reports: None Endocrine Medical History: Reports: None Renal/ Medical History: Reports: None, Hx Ovarian Cysts. Denies: Hx Peritoneal Dialysis Malignancy Medical History: Reports: None GI Medical History: Reports: Hx Gastroesophageal Reflux Disease, Hx Ulcerative Colitis, Hx Colonoscopy, Hx Endoscopy Musculoskeletal Medical History: Reports Hx Arthritis, Reports Hx Musculoskeletal Trauma - nose, bilateral ankles, and toe Skin Medical History: Reports None Psychiatric Medical History: Reports: Hx Anxiety, Hx Depression Traumatic Medical History: Reports: Hx Fractures Infectious Medical History: Reports: None Past Surgical History: Reports: Hx Abdominal Surgery - colostomy/take down multiple bowel surgeries, Hx Bowel Surgery - Multiple bowel surgeries and a J- pouch, Hx Cholecystectomy, Hx Colostomy - Had reversal surgery creating a J- pouch - Immunizations Immunizations up to date: Yes Hx Diphtheria, Pertussis, Tetanus Vaccination: Yes Review of Systems - Review of Systems Constitutional: See HPI EENT: See HPI, Nose congestion, Sinus pressure, Throat pain, Difficulty swallowing Cardiovascular: No symptoms reported Respiratory: See HPI, Cough. denies: Hemoptysis, Short of breath Gastrointestinal: No symptoms reported Genitourinary: No symptoms reported Female Genitourinary: No symptoms reported Musculoskeletal: No symptoms reported Skin: No symptoms reported Hematologic/Lymphatic: No symptoms reported Neurological/Psychological: No symptoms reported -: Yes All other systems reviewed and negative Physical Exam - Vital signs Vitals: Temp Pulse Resp BP Pulse Ox 99.4 F 98 23 H 119/68 98 10/06/18 20:16 10/06/18 20:16 10/06/18 20:16 10/06/18 20:16 10/06/18 20:16 Interpretation: Normal - Notes Notes: Well-appearing in no acute distress - General General appearance: Appears well, Alert - HEENT Head: Normocephalic, Atraumatic Eyes: Normal Pupils: PERRL Mucous membranes: Normal, Moist Pharynx: Erythema, Post nasal drainage. No: Exudate, Peritonsillar abscess - Respiratory Respiratory status: No respiratory distress Chest status: Nontender Breath sounds: Normal Chest palpation: Normal - Cardiovascular Rhythm: Regular Heart sounds: Normal auscultation Murmur: No - Abdominal Inspection: Normal Distension: No distension Bowel sounds: Normal Tenderness: Nontender Organomegaly: No organomegaly - Rectal Notes: Deferred - Genitourinary Notes: Deferred - Back Back: Normal, Nontender - Extremities General upper extremity: Normal inspection, Nontender, Normal color, Normal ROM, Normal temperature General lower extremity: Normal inspection, Nontender, Normal color, Normal ROM, Normal temperature, Normal weight bearing. No: Meche's sign - Neurological Neuro grossly intact: Yes Cognition: Normal Orientation: AAOx4 Billingsley Coma Scale Eye Opening: Spontaneous Santy Coma Scale Verbal: Oriented Santy Coma Scale Motor: Obeys Commands Billingsley Coma Scale Total: 15 Speech: Normal Motor strength normal: LUE, RUE, LLE, RLE Sensory: Normal - Psychological Associated symptoms: Normal affect, Normal mood - Skin Skin Temperature: Warm Skin Moisture: Dry Skin Color: Normal Course - Re-evaluation Re-evalutation: 10/07/18 03:11 Appears consistent with a viral syndrome. However influenza versus pneumonia is a possibility. Will await chest x-ray as well as influenza swab and reassess. 10/07/18 03:38 Chest x-ray is negative, influenza swab was also negative. Patient will be discharged home with return precautions and follow-up with her machine maintenance technician next week as scheduled. Patient voices both understanding and agreeing with the plan. - Vital Signs Vital signs: Temp Pulse Resp BP Pulse Ox 98.9 F 102 H 20 120/77 98 10/07/18 01:34 10/07/18 01:34 10/07/18 01:34 10/07/18 01:34 10/07/18 01:34 - Diagnostic Test Radiology reviewed: Reports reviewed - EKG Interpretation by Me EKG shows normal: Sinus rhythm Rate: Normal Rhythm: NSR Cornell/QRS: No: Right axis deviation, Left axis deviation, RBBB, LBBB, IVCD, LAHB/LAFB, LPHB/LPFB, Bifasicular block P Waves: No: YULIANA, LAE, Absent, AV Dissociation, Other When compared to previous EKG there are: Previous EKG unavailable Discharge - Discharge Clinical Impression: Sore throat (viral), Viral syndrome Condition: Good Disposition: HOME, SELF-CARE Instructions: Acetaminophen, Viral Syndrome ([facility]) Additional Instructions: Please follow-up with your machine maintenance technician next week as scheduled. Take your medic ations as prescribed. Return to the emergency department if you experience high fevers uncontrolled with Tylenol, difficulty breathing, abdominal pain with vaginal bleeding/discharge, or have any other concerning symptom. Prescriptions: Hydrocodone/Chlorphen P-Stirex [Tussionex Pennkinetic Susp] 10 ml PO BID PRN #[id number] [email or web address] PRN Reason: Cough Referrals: LUZ MARINA BARNARD PA-C [Primary Care Provider] - Follow up as needed Print Language: Croatian
[2018-10-07 01:51] LABS: A TYPE INFLUENZA AG NEGATIVE (NEGATIVE); B INFLUENZA AG NEGATIVE (NEGATIVE)
[2018-10-07] MEDS ORDERED: DEXAMETHASONE SOD PHOSPHATE INJ 4 MG/1 ML VIAL IV ONE (02:22)
--- NOTE | 2018-10-07 03:12 | RADIOLOGY REPORT (SQ) ---
Chest single view on 10/07/2018 at 2:52 AM CLINICAL INDICATION: Cough COMPARISON: 02/12/2018 FINDINGS: There is elevation of the right hemidiaphragm. There is mild linear atelectasis or scarring in the right lower lung. The lungs are otherwise clear. Cardiac, hilar and mediastinal contours are within normal limits. Pulmonary vascularity is within normal limits. IMPRESSION: No acute disease.
[2018-10-07 04:08] VITALS: BP 110/57
--- NOTE | 2018-10-07 17:25 | EKG REPORT ---
SEVERITY:- NORMAL ECG - SINUS RHYTHM : Confirmed by: Thelma Howe MD 07-Oct-2018 17:24:36
== END 2018-10-07 04:10 | disposition home or self-care (01) ==
LOC: ER 19:46
DX: J02.8 Acute pharyngitis due to other specified organisms (principal); B97.89 Other viral agents as the cause of diseases classified elsewhere; R05 Cough; R49.0 Dysphonia; R09.81 Nasal congestion; J34.89 Other specified disorders of nose and nasal sinuses; R09.82 Postnasal drip; R13.10 Dysphagia, unspecified; Z88.1 Allergy status to other antibiotic agents
CPT/HCPCS: 93005; 99284; 96361; 96374; 87804; 71045; 93010; J1100; J7120

== ENCOUNTER 2019-02-14 02:00 | Emergency (ER) | payer MEDICAID ==
[2019-02-14 02:13] VITALS: BP 146/86
[2019-02-14 02:40] LABS: ABSOLUTE BASOPHILS # (AUTO) 0.1 10^3/uL (0.0-0.2); ABSOLUTE EOSINOPHILS # (AUTO) 0.4 10^3/uL (0.0-0.6); ABSOLUTE LYMPHOCYTES (AUTO) 2.2 10^3/uL (0.5-4.7); ABSOLUTE MONOCYTES (AUTO) 0.5 10^3/uL (0.1-1.4); ABSOLUTE NEUT (AUTO) 5.7 10^3/uL (1.7-8.2); BASOPHILS % (AUTO) 1.4 % (0-2); EOSINOPHILS % (AUTO) 4.7 % (0-6); HEMATOCRIT 37.8 % (36.0-47.0); HEMOGLOBIN 12.6 g/dL (12.0-15.5); MEAN CORPUSCULAR HEMOGLOBIN 28.3 pg (27.0-33.4); MEAN CORPUSCULAR HGB CONC 33.3 g/dL (32.0-36.0); MEAN CORPUSCULAR VOLUME 85 fl (80-97); MONOCYTES % (AUTO) 5.2 % (3-13); PLATELET COUNT 240 10^3/uL (150-450); RED BLOOD COUNT 4.45 10^6/uL (3.72-5.28); SEGMENTED NEUTROPHILS % (AUTO) 63.7 % (42-78); TOTAL CELLS COUNTED % (AUTO) 100 %; WHITE BLOOD COUNT 8.9 10^3/uL (4.0-10.5)
[2019-02-14 02:48] LABS: INTERNATIONAL RATION (INR) 0.88; PROTHROMBIN TIME 12.4 SEC (11.4-15.4)
[2019-02-14 02:49] LABS: PARTIAL THROMBOPLASTIN TIME 32.9 SEC (23.5-35.8)
[2019-02-14 02:58] LABS: ALANINE AMINOTRANSFERASE 44 U/L (9-52); ALKALINE PHOSPHATASE 114 U/L (38-126); ANION GAP 13 (5-19); ASPARTATE AMINO TRANSFERASE 29 U/L (14-36); BILIRUBIN,DIRECT 0.2 mg/dL (0.0-0.4); BILIRUBIN,TOTAL 0.5 mg/dL (0.2-1.3); BLOOD UREA NITROGEN 15 mg/dL (7-20); CALCIUM 9.6 mg/dL (8.4-10.2); CARBON DIOXIDE 25 mmol/L (22-30); CHLORIDE 102 mmol/L (98-107); GLUCOSE 83 mg/dL (75-110); POTASSIUM 4.5 mmol/L (3.6-5.0); TOTAL PROTEIN 6.7 g/dL (6.3-8.2)
[2019-02-14 03:32] LABS: APPEARANCE,URINE SLIGHTLY-CLOUDY; BILIRUBIN,URINE NEGATIVE (NEGATIVE); COLOR,URINE YELLOW; GLUCOSE, URINE NEGATIVE (NEGATIVE); KETONES,URINE NEGATIVE (NEGATIVE); LEUKOCYTE ESTERASE,URINE NEGATIVE (NEGATIVE); NITRITE,URINE NEGATIVE (NEGATIVE); PROTEIN,URINE NEGATIVE (NEGATIVE); URINE SPECIFIC GRAVITY 1.024; UROBILINOGEN,URINE NEGATIVE mg/dL (<2.0)
--- NOTE | 2019-02-14 04:48 | RADIOLOGY REPORT (SQ) ---
CLINICAL HISTORY: LLQ abd tenderness to palpation COMPARISON: None. TECHNIQUE: CT ABDOMEN PELVIS WITH IV CONTRAST on 02/14/2019 3:42 AM CDT This exam was performed according to our departmental dose-optimization program, which includes automated exposure control, adjustment of the mA and/or kV according to patient size and/or use of iterative reconstruction technique. FINDINGS: Lower lungs are clear. Abdomen: The liver is normal in appearance. There is no biliary dilatation. Cholecystectomy was performed. The pancreas and spleen are normal in appearance. The adrenal glands and kidneys are unremarkable. Abdominal aorta is normal in course and caliber without aneurysm. There is no free air. There is no retroperitoneal adenopathy. Pelvis: There is no bowel obstruction. Urinary bladder is unremarkable. There is no free fluid. Uterus is normal in size. Near complete colectomy was performed. Skeleton: There are no acute osseous findings. No suspicious bony lesions. IMPRESSION: No acute inflammatory process.
--- NOTE | 2019-02-14 06:37 | ER Document Report ---
Entered by MARCELINO REICH SCRIBE 02/14/19 0227 Acting as scribe for:ROBERT HACKETT DO ED Hip Pain/Injury - General Chief Complaint: Pelvic Pain Stated Complaint: PELVIC PAIN Time Seen by Provider: 02/14/19 02:16 Primary Care Provider: LUZ MARINA BARNARD PA-C [Primary Care Provider] - Follow up as needed Notes: Patient is a 23-year-old female presents the emergency department complaining of nausea and mild left lower quadrant abdominal pain which is sharp and stabbing in nature. Patient states the onset was last night, she felt fine when she woke up this morning, however the pain worsened around lunch time. Patient had one pain pill left over from delivery and took it which allowed her to sleep. Denies fever, vaginal bleeding, vaginal discharge, dysuria, diarrhea, hematuria, vomiting or diarrhea. Of note patient had a spontaneous vaginal delivery 6 weeks ago, relatively uncomplicated, with some superficial vaginal lacerations. She is breast- feeding. Patient does have a history of ulcerative colitis as well as a clotting disorder for which she is taking Lovenox. TRAVEL OUTSIDE OF THE [place] IN LAST 30 DAYS: No - Related Data Allergies/Adverse Reactions: cephalexin [From Keflex] Allergy (Verified 07/29/18 08:15) loracarbef [From Lorabid] Allergy (Verified 07/29/18 08:15) NSAIDS (Non-Steroidal Anti-Inflamma Adverse Reaction (Verified 07/29/18 08:15) Past Medical History - General Information source: Patient - Social History Smoking Status: Never Smoker Chew tobacco use (# tins/day): No Frequency of alcohol use: Occasional Drug Abuse: None Family History: Arthritis, CAD, CVA, DM, Hyperlipidemia, Hypertension, Malignancy - Past Medical History Cardiac Medical History: Reports: Hx DVT, Hx Pulmonary Embolism - Twice Pulmonary Medical History: Reports: Hx Asthma - as child, Hx Intubation - With trach as a child Renal/ Medical History: Reports: Hx Ovarian Cysts. Denies: Hx Peritoneal Dialysis GI Medical History: Reports: Hx Gastroesophageal Reflux Disease, Hx Ulcerative Colitis, Hx Colonoscopy, Hx Endoscopy Musculoskeletal Medical History: Reports Hx Arthritis, Reports Hx Musculoskeletal Trauma - nose, bilateral ankles, and toe Psychiatric Medical History: Reports: Hx Anxiety, Hx Depression Traumatic Medical History: Reports: Hx Fractures Past Surgical History: Reports: Hx Abdominal Surgery - colostomy/take down multiple bowel surgeries, Hx Bowel Surgery - Multiple bowel surgeries and a J- pouch, Hx Cholecystectomy, Hx Colostomy - Had reversal surgery creating a J- pouch - Immunizations Immunizations up to date: Yes Hx Diphtheria, Pertussis, Tetanus Vaccination: Yes Review of Systems - Review of Systems Constitutional: No symptoms reported EENT: No symptoms reported Gastrointestinal: See HPI Genitourinary: No symptoms reported Female Genitourinary: No symptoms reported -: Yes All other systems reviewed and negative Physical Exam - Vital signs Vitals: Temp Pulse Resp BP Pulse Ox 97.9 F 84 18 146/86 H 100 02/14/19 02:12 02/14/19 02:12 02/14/19 02:12 02/14/19 02:12 02/14/19 02:12 - Notes Notes: PHYSICAL EXAM GENERAL: Alert, interacts well. No acute distress. Obese. HEAD: Normocephalic, atraumatic. EYES: Pupils equal, round, and reactive to light. Extraocular movements intact. ENT: Oral mucosa moist, tongue midline. NECK: Full range of motion. Supple. Trachea midline. LUNGS: Clear to auscultation bilaterally, no wheezes, rales, or rhonchi. No respiratory distress. HEART: Regular rate and rhythm. No murmurs, gallops, or rubs. ABDOMEN: Left lower quadrant abdominal tenderness to palpation. No palpable masses. Obese. Non-distended. Bowel sounds present in all 4 quadrants. No guarding, rigidity, or rebound. EXTREMITIES: Moves all 4 extremities spontaneously. No edema, radial and dorsalis pedis pulses 2/4 bilaterally. No cyanosis. NEUROLOGICAL: Alert and oriented x3. Normal speech. PSYCH: Normal affect, normal mood. SKIN: Warm, dry, normal turgor. No rashes or lesions noted. Course - Re-evaluation Re-evalutation: 02/14/19 05:05 CBC unremarkable, coags normal, CMP unremarkable, urinalysis unremarkable, test negative, no signs of blood or infection, given the degree of pain the patient is having a CT scan of the abdomen pelvis was ordered and it revealed no acute process although it did show that she has had had a near total colectomy. Patient does have a history of ulcerative colitis for which they removed most of her intestine. I did recheck with the patient and she states that she has not had any fevers, blood in her stool or mucus in her stool. No evidence of a flare of her ulcerative colitis at this time. We will hold off on starting steroids at this time. No indication for antibiotics. Patient will be discharged home, encouraged to continue taking acetaminophen for her pain, follow-up with her primary care physician and return for any new or concerning symptoms. - Vital Signs Vital signs: Temp Pulse Resp BP Pulse Ox 97.9 F 84 18 146/86 H 100 02/14/19 02:12 02/14/19 02:12 02/14/19 02:12 02/14/19 02:12 02/14/19 02:12 - Laboratory Result Diagrams: 02/14/19 02:30 02/14/19 02:30 Discharge - Discharge Clinical Impression: Left lower quadrant abdominal pain of unknown etiology Condition: Stable Disposition: HOME, SELF-CARE Additional Instructions: Abdominal Pain There are many causes of abdominal pain. Pain can mean a serious problem requiring surgery (such as appendicitis). It can also be an innocent problem that goes away on its own (such as a viral infection). Often, time must pass to determine the cause of pain. The physician does not feel that hospitalization is necessary, at present. Things may change within the next 24 hours. Call the doctor or come back for re- examination if any problems occur, such as: (1) Pain that becomes more severe, steady, or becomes concentrated in one specific area. Also, pain that is more severe with movement or coughing. (2) Vomiting that persists or becomes more frequent. (3) Blood in the vomitus, urine, or bowel movements. Blood in the stool may have a tarry or black appearance. (4) Shaking chills or fever greater than 100 degrees F. (5) The abdomen becomes more distended or swollen. (6) Bowel movements cease. (7) Failure to improve as expected. You may also use acetaminophen (Tylenol) 1000 mg every 6 hours as needed for pain or fever. Please be aware that many medications contain acetaminophen, do not exceed a total of 1000 mg of acetaminophen every 6 hours. Referrals: LUZ MARINA BARNARD PA-C [Primary Care Provider] - Follow up as needed I personally performed the services described in the documentation, reviewed and edited the documentation which was dictated to the scribe in my presence, and it accurately records my words and actions.
== END 2019-02-14 05:10 | disposition home or self-care (01) ==
LOC: ER 02:00
DX: O90.89 Other complications of the puerperium, not elsewhere classified (principal); R10.32 Left lower quadrant pain; R10.814 Left lower quadrant abdominal tenderness; R11.0 Nausea; O99.13 Other diseases of the blood and blood-forming organs and certain disorders involving the immune mechanism complicating the puerperium; D68.9 Coagulation defect, unspecified; Z79.02 Long term (current) use of antithrombotics/antiplatelets; Z87.19 Personal history of other diseases of the digestive system; Z88.1 Allergy status to other antibiotic agents; Z87.42 Personal history of other diseases of the female genital tract; Z90.49 Acquired absence of other specified parts of digestive tract
CPT/HCPCS: 36415; 74177; 80053; 81001; 81025; 85025; 85610; 85730; 99284

== ENCOUNTER 2019-06-08 22:11 | Emergency (ER) | payer MEDICAID ==
--- NOTE | 2019-06-08 22:53 | ER Document Report ---
ED Medical Screen (RME) - General Chief Complaint: Pelvic Pain Stated Complaint: PELVIC AND BACK PAIN Time Seen by Provider: 06/08/19 22:45 Primary Care Provider: LUZ MARINA BARNARD PA-C [Primary Care Provider] - Follow up as needed Mode of Arrival: Ambulatory Information source: Patient Notes: 23-year-old female presented to ED for complaint of left pelvic pain for the last 3 days. She states that the day it was pretty bad and was rather radiating to the center of the back. She states that it is not as bad to the center back now but she still is having severe left pelvic pain. She states that she had a baby in December did not have another period until May 01 and that the only. She has had since delivery. She does have PCOS. She has a history of pulmonary em boli ulcerative colitis and a J-pouch performed in order to reverse the colostomy. She states she is a former smoker but no longer smokes does not drink or do any drugs. She is alert oriented respirations regular and unlabored speaking in full sentences walks with even steady gait. I have greeted and performed a rapid initial assessment of this patient. A comprehensive ED assessment and evaluation of the patient, analysis of test results and completion of medical decision making process will be conducted by an additional ED providers. TRAVEL OUTSIDE OF THE [place] IN LAST 30 DAYS: No - Related Data Allergies/Adverse Reactions: cephalexin [From Keflex] Allergy (Verified 07/29/18 08:15) loracarbef [From Lorabid] Allergy (Verified 07/29/18 08:15) NSAIDS (Non-Steroidal Anti-Inflamma Adverse Reaction (Verified 07/29/18 08:15) Past Medical History - General Last Menstrual Period: 05/01/2019 - Social History Family history: Arthritis, Malignancy, CAD, DM, Hyperlipidemia, Hypertension - Past Medical History Cardiac Medical History: Reports: Hx DVT, Hx Pulmonary Embolism - Twice Pulmonary Medical History: Reports: Hx Asthma - as child, Hx Intubation - With trach as a child Renal/ Medical History: Reports: Hx Ovarian Cysts. Denies: Hx Peritoneal Dialysis GI Medical History: Reports: Hx Gastroesophageal Reflux Disease, Hx Ulcerative Colitis, Hx Colonoscopy, Hx Endoscopy Musculoskeltal Medical History: Reports Hx Arthritis, Reports Hx Musculoskeletal Trauma - nose, bilateral ankles, and toe Psychiatric Medical History: Reports: Hx Anxiety, Hx Depression Traumatic Medical History: Reports: Hx Fractures Past Surgical History: Reports: Hx Abdominal Surgery - colostomy/take down multiple bowel surgeries, Hx Bowel Surgery - Multiple bowel surgeries and a J- pouch, Hx Cholecystectomy, Hx Colostomy - Had reversal surgery creating a J- pouch - Immunizations Immunizations up to date: Yes Hx Diphtheria, Pertussis, Tetanus Vaccination: Yes Physical Exam - Vital signs Vitals: Temp Pulse Resp BP Pulse Ox 97.8 F 90 18 133/71 H 97 06/08/19 22:15 06/08/19 22:15 06/08/19 22:15 06/08/19 22:15 06/08/19 22:15 Course - Vital Signs Vital signs: Temp Pulse Resp BP Pulse Ox 97.8 F 90 18 133/71 H 97 06/08/19 22:15 06/08/19 22:15 06/08/19 22:15 06/08/19 22:15 06/08/19 22:15 Doctor's Discharge - Discharge Referrals: LUZ MARINA BARNARD PA-C [Primary Care Provider] - Follow up as needed
[2019-06-08 23:08] LABS: ABSOLUTE BASOPHILS # (AUTO) 0.2 10^3/uL (0.0-0.2); ABSOLUTE EOSINOPHILS # (AUTO) 0.4 10^3/uL (0.0-0.6); ABSOLUTE LYMPHOCYTES (AUTO) 2.7 10^3/uL (0.5-4.7); ABSOLUTE MONOCYTES (AUTO) 0.6 10^3/uL (0.1-1.4); ABSOLUTE NEUT (AUTO) 8.5 10^3/uL (1.7-8.2); BASOPHILS % (AUTO) 1.3 % (0-2); HEMATOCRIT 38.8 % (36.0-47.0); HEMOGLOBIN 13.1 g/dL (12.0-15.5); LYMPHOCYTES % (AUTO) 21.8 % (13-45); MEAN CORPUSCULAR HEMOGLOBIN 28.2 pg (27.0-33.4); MEAN CORPUSCULAR HGB CONC 33.7 g/dL (32.0-36.0); MEAN CORPUSCULAR VOLUME 84 fl (80-97); MONOCYTES % (AUTO) 5.2 % (3-13); PLATELET COUNT 266 10^3/uL (150-450); RED BLOOD COUNT 4.63 10^6/uL (3.72-5.28); RED CELL DISTRIBUTION WIDTH 14.7 % (11.5-14.0); SEGMENTED NEUTROPHILS % (AUTO) 68.7 % (42-78); TOTAL CELLS COUNTED % (AUTO) 100 %; WHITE BLOOD COUNT 12.4 10^3/uL (4.0-10.5)
[2019-06-08 23:10] LABS: APPEARANCE,URINE SLIGHTLY-CLOUDY; BILIRUBIN,URINE NEGATIVE (NEGATIVE); COLOR,URINE YELLOW; GLUCOSE, URINE NEGATIVE (NEGATIVE); KETONES,URINE NEGATIVE (NEGATIVE); LEUKOCYTE ESTERASE,URINE TRACE (NEGATIVE); NITRITE,URINE NEGATIVE (NEGATIVE); PROTEIN,URINE NEGATIVE (NEGATIVE); URINE SPECIFIC GRAVITY 1.034; UROBILINOGEN,URINE NEGATIVE mg/dL (<2.0)
[2019-06-08 23:26] LABS: ALBUMIN 4.3 g/dL (3.5-5.0); ALKALINE PHOSPHATASE 106 U/L (38-126); ANION GAP 11 (5-19); ASPARTATE AMINO TRANSFERASE 39 U/L (14-36); BILIRUBIN,DIRECT 0.2 mg/dL (0.0-0.4); BILIRUBIN,TOTAL 0.4 mg/dL (0.2-1.3); BLOOD UREA NITROGEN 15 mg/dL (7-20); CALCIUM 9.7 mg/dL (8.4-10.2); CARBON DIOXIDE 24 mmol/L (22-30); CHLORIDE 102 mmol/L (98-107); GLUCOSE 105 mg/dL (75-110); POTASSIUM 4.1 mmol/L (3.6-5.0); TOTAL PROTEIN 6.8 g/dL (6.3-8.2)
--- NOTE | 2019-06-09 | RADIOLOGY REPORT (SQ) ---
CLINICAL HISTORY: Left pelvic pain COMPARISON: None. TECHNIQUE: US PELVIS TRANSVAGINAL on 06/08/2019 10:50 PM CDT FINDINGS: Uterus measures 8 cm and is normal in echotexture. Endometrial stripe measures 1.2 cm. Right ovary measures 7.5 x 5.1 x 5.3 cm and contains a 5.4 cm simple appearing cyst, although this is poorly seen. Left ovary measures 6.0 x 5.2 cm and contains a 5.5 cm simple cyst. There is patent flow to both ovaries. IMPRESSION: Bilateral ovarian cysts. Recommend follow-up. No evidence of torsion.
--- NOTE | 2019-06-09 00:13 | ER Document Report ---
ED GI/ - General Chief Complaint: Pelvic Pain Stated Complaint: PELVIC AND BACK PAIN Time Seen by Provider: 06/09/19 00:12 Primary Care Provider: LUZ MARINA BARNARD PA-C [NO LOCAL MD] - Follow up as needed Mode of Arrival: Ambulatory Information source: Patient Notes: HISTORY OF PRESENT ILLNESS: Patient is a 23-year-old female with a past medical history of polycystic ovary syndrome who presents with bilateral pelvic pain as well as back pain that she reports is nearly identical to her previous history of ovarian cysts. Location: Pelvic, back Onset: "Several days ago" Provocation: Movement, twisting Quality: Aching, cramping Radiation: None Severity: Mild to moderate Timing: Constant LMP: Last month" Associated symptoms: Denies fevers or chills, no nausea or vomiting, no diarrhea, no vaginal bleeding or discharge REVIEW OF SYSTEMS: CONSTITUTIONAL : Denies fever or chills, no sweats. Denies recent illness. EENT: Denies eye, ear, throat, or mouth pain or symptoms. Denies nasal or sinus congestion. CARDIOVASCULAR: Denies chest pain. RESPIRATORY: Denies cough, cold, or chest congestion. Denies shortness of breath, difficulty breathing, or wheezing. GASTROINTESTINAL: Positive for lower abdominal pain. Denies nausea, vomiting, or diarrhea. Denies constipation. GENITOURINARY: Denies difficulty urinating, painful urination, burning, frequenc y, or blood in urine. Denies vaginal bleeding, abnormal or irregular periods. MUSCULOSKELETAL: Denies neck or back pain or joint pain or swelling. SKIN: Denies rash or skin lesions. HEMATOLOGIC : Denies easy bruising or bleeding. LYMPHATIC: Denies swollen, enlarged glands. NEUROLOGICAL: Denies altered mental status or loss of consciousness. Denies headache. Denies weakness or paralysis or loss of use of either side. Denies problems with gait or speech. Denies sensory or motor loss. PSYCHIATRIC: Denies anxiety or stress or depression. All other systems reviewed and negative. PHYSICAL EXAMINATION: GENERAL: Well-appearing, well-nourished and in no acute distress. HEAD: Atraumatic, normocephalic. No scalp deformity, depression, or crepitance. EYES: Pupils are 3 mm and equal/round/reactive to light, extraocular movements intact, sclera anicteric, conjunctiva are normal. ENT: Nares patent bilaterally, oropharynx clear without exudates or palatal petechia. Moist mucous membranes. No tonsil hypertrophy. NECK: Normal range of motion, supple without lymphadenopathy. LUNGS: Breath sounds present, equal, and clear to auscultation bilaterally. No wheezes, rales, or rhonchi. HEART: Regular rate and rhythm without murmurs, rubs, or gallops. 2+ peripheral pulses. Normal capillary refill. ABDOMEN: Soft, nontender, nondistended. Normoactive bowel sounds. No guarding, no rebound. No masses appreciated. BACK: Normal contour, no midline tenderness. Rectal exam deferred. PELVC: Deferred. EXTREMITIES: Normal range of motion, no pitting or edema. No cyanosis. NEUROLOGICAL: No focal neurological deficits. Moves all extremities spontaneously and on command. PSYCH: Normal mood, normal affect. No suicidal thoughts/ideations. No homicidal thoughts/ideations. No hallucinations. SKIN: Warm, dry, normal turgor, no rashes or lesions noted. ASSESSMENT AND PLAN: This patient is a 23-year-old female who presents with lower pelvic and back pain consistent with prior history of polycystic ovary syndrome. 1. Will obtain labs, urine, and pelvic ultrasound. 2. Will reassess after intramuscular Toradol. TRAVEL OUTSIDE OF THE [place] IN LAST 30 DAYS: No - HPI Patient complains to provider of: Pelvic pain. No: Vaginal bleeding, Vaginal discharge Onset: Yesterday Timing/Duration: Gradual Quality of pain: Achy, Cramping Severity at maximum: Severe Severity in ED: Moderate Pain Level: 3 Location: Pelvis Vaginal bleeding (Compared to normal period): None Menstrual period history: Irregular. denies: Abnormal OB ultrasound done: No vitamins taken: No Sexual history: Active Associated symptoms: None Exacerbated by: Denies Relieved by: Denies Similar symptoms previously: Yes Recently seen / treated by doctor: No - Related Data Allergies/Adverse Reactions: cephalexin [From Keflex] Allergy (Verified 07/29/18 08:15) loracarbef [From Lorabid] Allergy (Verified 07/29/18 08:15) NSAIDS (Non-Steroidal Anti-Inflamma Adverse Reaction (Verified 07/29/18 08:15) Past Medical History - General Information source: Patient Last Menstrual Period: 05/01/2019 - Social History Smoking Status: Former Smoker Chew tobacco use (# tins/day): No Frequency of alcohol use: None Drug Abuse: None Lives with: Family Family History: Arthritis, CAD, CVA, DM, Hyperlipidemia, Hypertension, Ma lignancy Patient has suicidal ideation: No Patient has homicidal ideation: No - Past Medical History Cardiac Medical History: Reports: Hx DVT, Hx Pulmonary Embolism - Twice Pulmonary Medical History: Reports: Hx Asthma - as child, Hx Intubation - With trach as a child EENT Medical History: Reports: None Neurological Medical History: Reports: None Endocrine Medical History: Reports: None Renal/ Medical History: Reports: Hx Ovarian Cysts. Denies: Hx Peritoneal Dialysis Malignancy Medical History: Reports: None GI Medical History: Reports: Hx Gastroesophageal Reflux Disease, Hx Ulcerative Colitis, Hx Colonoscopy, Hx Endoscopy Musculoskeletal Medical History: Reports Hx Arthritis, Reports Hx Musculoskel etal Trauma - nose, bilateral ankles, and toe Skin Medical History: Reports None Psychiatric Medical History: Reports: Hx Anxiety, Hx Depression Traumatic Medical History: Reports: Hx Fractures Infectious Medical History: Reports: None Past Surgical History: Reports: Hx Abdominal Surgery - colostomy/take down multiple bowel surgeries, Hx Bowel Surgery - Multiple bowel surgeries and a J- pouch, Hx Cholecystectomy, Hx Colostomy - Had reversal surgery creating a J- pouch - Immunizations Immunizations up to date: Yes Hx Diphtheria, Pertussis, Tetanus Vaccination: Yes Review of Systems - Review of Systems Constitutional: No symptoms reported EENT: No symptoms reported Cardiovascular: No symptoms reported Respiratory: No symptoms reported Gastrointestinal: No symptoms reported Genitourinary: No symptoms reported Female Genitourinary: See HPI Musculoskeletal: No symptoms reported Skin: No symptoms reported Hematologic/Lymphatic: No symptoms reported Neurological/Psychological: No symptoms reported -: Yes All other systems reviewed and negative Physical Exam - Vital signs Vitals: Temp Pulse Resp BP Pulse Ox 97.8 F 90 18 133/71 H 97 06/08/19 22:15 06/08/19 22:15 06/08/19 22:15 06/08/19 22:15 06/08/19 22:15 Interpretation: Normal - General General appearance: Appears well, Alert - HEENT Head: Normocephalic, Atraumatic Eyes: Normal Pupils: PERRL - Respiratory Respiratory status: No respiratory distress Chest status: Nontender Breath sounds: Normal Chest palpation: Normal - Cardiovascular Rhythm: Regular Heart sounds: Normal auscultation Murmur: No - Abdominal Inspection: Normal Distension: No distension Bowel sounds: Normal Tenderness: Nontender Organomegaly: No organomegaly - Back Back: Normal, Nontender - Extremities General upper extremity: Normal inspection, Nontender, Normal color, Normal ROM, Normal temperature General lower extremity: Normal inspection, Nontender, Normal color, Normal ROM, Normal temperature, Normal weight bearing. No: Meche's sign - Neurological Neuro grossly intact: Yes Cognition: Normal Orientation: AAOx4 Antoine Coma Scale Eye Opening: Spontaneous Antoine Coma Scale Verbal: Oriented Antoine Coma Scale Motor: Obeys Commands Santy Coma Scale Total: 15 Speech: Normal Motor strength normal: LUE, RUE, LLE, RLE Sensory: Normal - Psychological Associated symptoms: Normal affect, Normal mood - Skin Skin Temperature: Warm Skin Moisture: Dry Skin Color: Normal Course - Re-evaluation Re-evalutation: 06/09/19 00:58 Ultrasound consistent with bilateral ovarian cysts. Labs otherwise unremarkable. Will discharge the patient home with strict return precautions and follow-up with ORTHOPEDICS TEACHER. All results were explained to and discussed with the patient, and all questions addressed and answered for the patient. The patient and family voices both understanding and agreeing with the plan. - Vital Signs Vital signs: Temp Pulse Resp BP Pulse Ox 97.8 F 70 18 134/81 H 98 06/09/19 01:15 06/09/19 01:15 06/09/19 01:15 06/09/19 01:15 06/09/19 01:15 - Laboratory Result Diagrams: 06/08/19 22:58 06/08/19 22:58 Laboratory results interpreted by me: 06/08/19 06/08/19 06/08/19 22:58 22:58 22:58 WBC 12.4 H RDW 14.7 H Absolute Neuts (auto) 8.5 H AST 39 H Ur Leukocyte Esterase TRACE H - Diagnostic Test Radiology reviewed: Image reviewed, Reports reviewed Discharge - Discharge Clinical Impression: Polycystic ovarian syndrome Condition: Good Disposition: HOME, SELF-CARE Instructions: Ovarian Cyst ([facility]) Additional Instructions: You have been evaluated in the Emergency Department for pelvic and back pain. While here, you had blood work that was normal and an ultrasound that confirmed you have multiple ovarian cysts and it is now safe to be discharged home. Please follow-up with your ORTHOPEDICS TEACHER as instructed in 1 week. Return to the Emergency Department if you experience worsening pain, vaginal bleeding, or any other concerning symptoms. Prescriptions: Tramadol HCl [Ultram 50 mg Tablet] 50 mg PO Q6HP PRN #28 tablet PRN Reason: For Pain Norethindrone 0.35 mg PO DAILY #30 tablet Referrals: LUZ MARINA BARNARD PA-C [NO LOCAL MD] - Follow up as needed Print Language: Chinese
[2019-06-09] MEDS ORDERED: TRAMADOL HCL 50 MG TABLET PO ONE (00:57)
[2019-06-09 01:22] VITALS: BP 134/81
== END 2019-06-09 01:15 | disposition home or self-care (01) ==
LOC: ER 22:11
DX: E28.2 Polycystic ovarian syndrome (principal); R10.2 Pelvic and perineal pain
CPT/HCPCS: 36415; 76830; 80053; 81001; 84702; 85025; 99284

== ENCOUNTER 2019-07-31 22:43 | Emergency (ER) | payer MEDICAID ==
[2019-07-31] MEDS ORDERED: PROMETHAZINE HCL 25 MG TABLET PO ONE (23:43)
[2019-07-31] MEDS ORDERED: LIDOCAINE 1%/EPINEPHRINE INJ 20 ML VIAL INJ ONE (23:43)
[2019-07-31] MEDS ORDERED: OXYCODONE-ACETAMINOPHEN 5-325 MG TABLET PO ONE (23:43)
[2019-07-31 23:44] LABS: APPEARANCE,URINE SLIGHTLY-CLOUDY; BILIRUBIN,URINE NEGATIVE (NEGATIVE); COLOR,URINE YELLOW; GLUCOSE, URINE NEGATIVE (NEGATIVE); KETONES,URINE NEGATIVE (NEGATIVE); LEUKOCYTE ESTERASE,URINE NEGATIVE (NEGATIVE); NITRITE,URINE NEGATIVE (NEGATIVE); PROTEIN,URINE NEGATIVE (NEGATIVE); URINE SPECIFIC GRAVITY 1.028; UROBILINOGEN,URINE NEGATIVE mg/dL (<2.0)
--- NOTE | 2019-07-31 23:45 | ER Document Report ---
ED Skin Rash/Insect Bite/Abscs - General Chief Complaint: Abscess Stated Complaint: POSSIBLE CYSTS Time Seen by Provider: 07/31/19 23:19 Notes: This is a 23-year-old female that comes to the emergency department for chief complaint of this an abscess on the left inguinal area. She states that about 2 weeks ago she was able to drain it but then it closed, hardened, and now has become increasingly swollen and tender. She denies recent drainage from the area, fever/chills, nausea/vomiting. LMP last month. She is on a blood thinner with a history of DVTs. She denies history of diabetes or abscesses. TRAVEL OUTSIDE OF THE [place] IN LAST 30 DAYS: No - Related Data Allergies/Adverse Reactions: cephalexin [From Keflex] Allergy (Verified 07/29/18 08:15) loracarbef [From Lorabid] Allergy (Verified 07/29/18 08:15) NSAIDS (Non-Steroidal Anti-Inflamma Adverse Reaction (Verified 07/29/18 08:15) Home Medications: vitamin d, nexium,zyrtec,lovenox, "mini pill" Past Medical History - General Information source: Patient - Social History Smoking Status: Former Smoker Chew tobacco use (# tins/day): No Frequency of alcohol use: Occasional Drug Abuse: None Lives with: Family Family History: Arthritis, CAD, CVA, DM, Hyperlipidemia, Hypertension, Malignancy Patient has suicidal ideation: No Patient has homicidal ideation: No - Past Medical History Cardiac Medical History: Reports: Hx DVT, Hx Pulmonary Embolism - Twice Pulmonary Medical History: Reports: Hx Asthma - as child, Hx Intubation - With trach as a child Renal/ Medical History: Reports: Hx Ovarian Cysts. Denies: Hx Peritoneal Dialysis GI Medical History: Reports: Hx Gastroesophageal Reflux Disease, Hx Ulcerative Colitis, Hx Colonoscopy, Hx Endoscopy Musculoskeletal Medical History: Reports Hx Arthritis, Reports Hx Musculoskeletal Trauma - nose, bilateral ankles, and toe Psychiatric Medical History: Reports: Hx Anxiety, Hx Depression Traumatic Medical History: Reports: Hx Fractures Past Surgical History: Reports: Hx Abdominal Surgery - colostomy/take down multiple bowel surgeries, Hx Bowel Surgery - Multiple bowel surgeries and a J- pouch, Hx Cholecystectomy, Hx Colostomy - Had reversal surgery creating a J- pouch - Immunizations Immunizations up to date: Yes Hx Diphtheria, Pertussis, Tetanus Vaccination: Yes Review of Systems - Review of Systems Constitutional: No symptoms reported EENT: No symptoms reported Cardiovascular: No symptoms reported Respiratory: No symptoms reported Gastrointestinal: No symptoms reported Genitourinary: No symptoms reported Female Genitourinary: No symptoms reported Musculoskeletal: No symptoms reported Skin: See HPI Hematologic/Lymphatic: No symptoms reported Neurological/Psychological: No symptoms reported Physical Exam - Vital signs Vitals: Temp Pulse Resp BP Pulse Ox 97.9 F 92 20 128/88 H 97 07/31/19 22:53 07/31/19 22:53 07/31/19 22:53 07/31/19 22:53 07/31/19 22:53 - Notes Notes: GENERAL: Alert, interacts well. No acute distress. HEAD: Normocephalic, atraumatic. EYES: Pupils equal, round, and reactive to light. Extraocular movements intact. ENT: Oral mucosa moist, tongue midline. Oropharynx unremarkable. NECK: Full range of motion. Supple. Trachea midline. LUNGS: Clear to auscultation bilaterally, no wheezes, rales, or rhonchi. No respiratory distress. HEART: Regular rate and rhythm. No murmur ABDOMEN: Soft, non-tender. Non-distended. Bowel sounds present in all 4 quadrants. GENITOURINARY: Over the left inguinal area lateral to the left labia there is a indurated and fluctuant abscess. No significant surrounding cellulitis. No noted extension into the genitalia or perineum, no nearby lymphadenopathy. EXTREMITIES: Moves all 4 extremities spontaneously. No edema, normal radial and dorsalis pedis pulses bilaterally. No cyanosis. BACK: no cervical, thoracic, lumbar midline tenderness. No saddle anesthesia, normal distal neurovascular exam. Moves all extremities in full range of motion. NEUROLOGICAL: Alert and oriented x3. Normal speech. Cranial nerves II through XII grossly intact. PSYCH: Normal affect, normal mood. SKIN: Warm, dry, normal turgor. No rashes or lesions noted. Course - Re-evaluation Re-evalutation: Patient with an isolated left inguinal abscess without extension or cellulitis surrounding this. This was cleaned, drained, patient placed on Bactrim, discussed treatment, follow-up, return precautions. Patient states understanding and agreement. - Vital Signs Vital signs: Temp Pulse Resp BP Pulse Ox 97.7 F 84 16 112/85 100 08/01/19 00:47 08/01/19 00:47 08/01/19 00:47 08/01/19 00:47 08/01/19 00:47 Procedures - Incision and Drainage Left inguinal area Type: Single Anesthetic type: 1% Lidocaine w/epi mL's of anesthetic: 8 Blade size: 11 I&D procedure: Shurclens applied, Sterile dressing applied Incision Method: Incision made by scalpel Amount/type of drainage: About 5 cc of purulent drainage Discharge - Discharge Clinical Impression: Abscess Condition: Stable Disposition: HOME, SELF-CARE Additional Instructions: The abscess has been drained. Keep area clean with soap and water, apply absorbing dressing, take antibiotic as prescribed. Symptoms should resolve with time. Follow-up with primary care. Return if you worsen including developing pain, spreading redness, fever, or any other concerning or worsening symptoms. Prescriptions: Sulfamethoxazole/Trimethoprim [Bactrim Ds Tablet] 1 each PO BID #14 tablet
[2019-08-01] MEDS ORDERED: HYDROCODONE/ACETAMINOPHEN 5-325 MG (6 TAB/ER DISP) PO PRN (00:33)
[2019-08-01 00:48] VITALS: BP 112/85
== END 2019-08-01 00:59 | disposition home or self-care (01) ==
LOC: ER 22:43
PROC: 0H97XZZ Drainage of Abdomen Skin, External Approach (ICD-10-PCS; principal; 2019-07-31)
DX: L02.211 Cutaneous abscess of abdominal wall (principal); Z79.01 Long term (current) use of anticoagulants; Z87.891 Personal history of nicotine dependence; J45.909 Unspecified asthma, uncomplicated
CPT/HCPCS: 99283; 81025; 81001; 10060; J3490 ×2

== ENCOUNTER 2019-12-11 20:57 | Emergency (ER) | payer MEDICAID ==
--- NOTE | 2019-12-11 22:13 | ER Document Report ---
ED Medical Screen (RME) - General Chief Complaint: Chest Pain Stated Complaint: CHEST PAINS,SHORTNESS OF BREATH Primary Care Provider: JUANITA SOL MD [Primary Care Provider] - Follow up as needed Mode of Arrival: Ambulatory Information source: Patient Notes: Patient is a 24-year-old female patient with history of multiple pulmonary embolisms presenting to the emergency department with chest pain and shortness of breath. Patient reports symptoms started today. She reports it is progressively gotten worse over the last 6 hours. She reports that she gets extremely short of breath with any exertion. She reports she is not on any blood thinners. She was recently on Lovenox but stopped taking it approximately 1 month ago. She reports her first PE was at age 11. She denies any current cough, congestion, fever. Lung sounds clear and equal bilaterally. I have greeted and performed a rapid initial assessment of this patient. A comprehensive ED assessment and evaluation of the patient, analysis of test results and completion of the medical decision making process will be conducted by additional ED providers. I have specifically instructed the patient or family members with the patient to immediately return to any nursing staff should anything change in the patient's condition or with their chief complaint. TRAVEL OUTSIDE OF THE [place] IN LAST 30 DAYS: No - Related Data Allergies/Adverse Reactions: cephalexin [From Keflex] Allergy (Verified 07/29/18 08:15) loracarbef [From Lorabid] Allergy (Verified 07/29/18 08:15) NSAIDS (Non-Steroidal Anti-Inflamma Adverse Reaction (Verified 07/29/18 08:15) Home Medications: nexium. zyrtec. vitamin D. control pill (mini pill) Past Medical History - Social History Frequency of alcohol use: Occasional Drug Abuse: None Family history: Arthritis, Malignancy, CAD, DM, Hyperlipidemia, Hypertension - Past Medical History Cardiac Medical History: Reports: Hx DVT, Hx Pulmonary Embolism - Twice Pulmonary Medical History: Reports: Hx Asthma - as child, Hx Intubation - With trach as a child Renal/ Medical History: Reports: Hx Ovarian Cysts. Denies: Hx Peritoneal Dialysis GI Medical History: Reports: Hx Gastroesophageal Reflux Disease, Hx Ulcerative Colitis, Hx Colonoscopy, Hx Endoscopy Musculoskeltal Medical History: Reports Hx Arthritis, Reports Hx Musculoskeletal Trauma - nose, bilateral ankles, and toe Psychiatric Medical History: Reports: Hx Anxiety, Hx Depression Traumatic Medical History: Reports: Hx Fractures Past Surgical History: Reports: Hx Abdominal Surgery - colostomy/take down multiple bowel surgeries, Hx Bowel Surgery - Multiple bowel surgeries and a J- pouch, Hx Cholecystectomy, Hx Colostomy - Had reversal surgery creating a J- pouch - Immunizations Immunizations up to date: Yes Hx Diphtheria, Pertussis, Tetanus Vaccination: Yes Physical Exam - Vital signs Vitals: Temp Pulse Resp BP Pulse Ox 98.1 F 101 H 20 142/92 H 100 12/11/19 21:03 12/11/19 21:03 12/11/19 21:03 12/11/19 21:03 12/11/19 21:03 Course - Vital Signs Vital signs: Temp Pulse Resp BP Pulse Ox 98.1 F 101 H 20 142/92 H 100 12/11/19 21:03 12/11/19 21:03 12/11/19 21:03 12/11/19 21:03 12/11/19 21:03 Doctor's Discharge - Discharge Referrals: JUANITA SOL MD [Primary Care Provider] - Follow up as needed
[2019-12-11 22:51] LABS: ABSOLUTE BASOPHILS # (AUTO) 0.1 10^3/uL (0.0-0.2); ABSOLUTE EOSINOPHILS # (AUTO) 0.4 10^3/uL (0.0-0.6); ABSOLUTE LYMPHOCYTES (AUTO) 2.5 10^3/uL (0.5-4.7); ABSOLUTE MONOCYTES (AUTO) 0.7 10^3/uL (0.1-1.4); ABSOLUTE NEUT (AUTO) 8.4 10^3/uL (1.7-8.2); BASOPHILS % (AUTO) 0.5 % (0-2); EOSINOPHILS % (AUTO) 3.7 % (0-6); HEMATOCRIT 41.7 % (36.0-47.0); HEMOGLOBIN 13.8 g/dL (12.0-15.5); LYMPHOCYTES % (AUTO) 20.6 % (13-45); MEAN CORPUSCULAR HEMOGLOBIN 27.7 pg (27.0-33.4); MEAN CORPUSCULAR HGB CONC 33.2 g/dL (32.0-36.0); MEAN CORPUSCULAR VOLUME 84 fl (80-97); PLATELET COUNT 234 10^3/uL (150-450); RED CELL DISTRIBUTION WIDTH 14.6 % (11.5-14.0); SEGMENTED NEUTROPHILS % (AUTO) 69.2 % (42-78); TOTAL CELLS COUNTED % (AUTO) 100 %; WHITE BLOOD COUNT 12.2 10^3/uL (4.0-10.5)
[2019-12-11 23:13] LABS: ALBUMIN 4.4 g/dL (3.5-5.0); ALKALINE PHOSPHATASE 119 U/L (38-126); ANION GAP 8 (5-19); ASPARTATE AMINO TRANSFERASE 42 U/L (14-36); BILIRUBIN,DIRECT 0.1 mg/dL (0.0-0.4); BILIRUBIN,TOTAL 0.5 mg/dL (0.2-1.3); BLOOD UREA NITROGEN 11 mg/dL (7-20); CALCIUM 9.6 mg/dL (8.4-10.2); CARBON DIOXIDE 26 mmol/L (22-30); CHLORIDE 102 mmol/L (98-107); GLUCOSE 85 mg/dL (75-110); POTASSIUM 4.7 mmol/L (3.6-5.0); TOTAL PROTEIN 7.2 g/dL (6.3-8.2)
[2019-12-11 23:16] LABS: INTERNATIONAL RATION (INR) 1.02; PARTIAL THROMBOPLASTIN TIME 29.7 SEC (23.5-35.8); PROTHROMBIN TIME 13.4 SEC (11.4-15.4)
[2019-12-12] MEDS ORDERED: ONDANSETRON HCL INJ/PF 4 MG/2 ML SDV IV ONE (00:53)
[2019-12-12] MEDS ORDERED: MORPHINE SULFATE 10 MG/ML INJ IV ONE (00:53)
--- NOTE | 2019-12-12 00:55 | ER Document Report ---
ED Respiratory Problem - General Chief Complaint: Chest Pain Stated Complaint: CHEST PAINS,SHORTNESS OF BREATH Time Seen by Provider: 12/12/19 00:18 Primary Care Provider: BRENDAN CHAVEZ MD [ACTIVE STAFF] - 12/13/19 Mode of Arrival: Ambulatory Notes: Patient is a 24-year-old female that comes emergency department for chief complaint of pain over the left side of the chest, shortness of breath, and pain with taking a deep breath. She states that almost feels like she pulled a muscle but she does not recall an injury and she is concerned she has a pulmonary embolism. She has had PEs twice in the past, she was previously on Eliquis, switched over to Lovenox during and then continued on Lovenox during breast-feeding. She ran out of her Lovenox about 4 weeks ago. She has not followed up with her product manager yet (Dr. Chavez) and is therefore not currently on a blood thinner. She has a past medical history of childhood asthma but has never had any problems with it as an adult and denies wheezing, cough, fever. She is on oral contraceptive (single not dual hormone), has a history of ulcerative colitis status post surgery and is on no medications for this. She smokes occasionally. She denies recreational drugs. TRAVEL OUTSIDE OF THE [place] IN LAST 30 DAYS: No - Related Data Allergies/Adverse Reactions: cephalexin [From Keflex] Allergy (Verified 07/29/18 08:15) loracarbef [From Lorabid] Allergy (Verified 07/29/18 08:15) NSAIDS (Non-Steroidal Anti-Inflamma Adverse Reaction (Verified 07/29/18 08:15) Home Medications: nexium. zyrtec. vitamin D. control pill (mini pill) Past Medical History - General Information source: Patient - Social History Smoking Status: Current Some Day Smoker Smoking Education Provided: Yes - <3 min Frequency of alcohol use: Occasional Drug Abuse: None Lives with: Family Family History: Arthritis, CAD, CVA, DM, Hyperlipidemia, Hypertension, Malignancy Patient has suicidal ideation: No Patient has homicidal ideation: No - Past Medical History Cardiac Medical History: Reports: Hx DVT, Hx Pulmonary Embolism - Twice Pulmonary Medical History: Reports: Hx Asthma - as child, Hx Intubation - With trach as a child Renal/ Medical History: Reports: Hx Ovarian Cysts. Denies: Hx Peritoneal Dialysis GI Medical History: Reports: Hx Gastroesophageal Reflux Disease, Hx Ulcerative Colitis, Hx Colonoscopy, Hx Endoscopy Musculoskeletal Medical History: Reports Hx Arthritis, Reports Hx Musculoskeletal Trauma - nose, bilateral ankles, and toe Psychiatric Medical History: Reports: Hx Anxiety, Hx Depression Traumatic Medical History: Reports: Hx Fractures Past Surgical History: Reports: Hx Abdominal Surgery - colostomy/take down mult iple bowel surgeries, Hx Bowel Surgery - Multiple bowel surgeries and a J-pouch, Hx Cholecystectomy, Hx Colostomy - Had reversal surgery creating a J-pouch - Immunizations Immunizations up to date: Yes Hx Diphtheria, Pertussis, Tetanus Vaccination: Yes Review of Systems - Review of Systems Constitutional: No symptoms reported EENT: No symptoms reported Cardiovascular: See HPI Respiratory: See HPI Gastrointestinal: No symptoms reported Genitourinary: No symptoms reported Female Genitourinary: No symptoms reported Musculoskeletal: See HPI Skin: No symptoms reported Hematologic/Lymphatic: No symptoms reported Neurological/Psychological: No symptoms reported Physical Exam - Vital signs Vitals: Temp Pulse Resp BP Pulse Ox 98.1 F 101 H 20 142/92 H 100 12/11/19 21:03 12/11/19 21:03 12/11/19 21:03 12/11/19 21:03 12/11/19 21:03 - Notes Notes: GENERAL: Alert, interacts well. No acute distress. HEAD: Normocephalic, atraumatic. EYES: Pupils equal, round, and reactive to light. Extraocular movements intact. ENT: Oral mucosa moist, tongue midline. Oropharynx unremarkable. Airway patent. LUNGS: Clear to auscultation bilaterally, no wheezes, rales, or rhonchi. No respiratory distress. Mild tenderness on palpation over the left chest, nonspecific HEART: Regular rate and rhythm. No murmur ABDOMEN: Soft, non-tender. Non-distended. EXTREMITIES: Moves all 4 extremities spontaneously. No edema, normal radial and dorsalis pedis pulses bilaterally. No cyanosis. BACK: no cervical, thoracic, lumbar midline tenderness. No saddle anesthesia, normal distal neurovascular exam. Moves all extremities in full range of motion. NEUROLOGICAL: Alert and oriented x3. Normal speech. Cranial nerves II through XII grossly intact. PSYCH: Normal affect, normal mood. SKIN: Warm, dry, normal turgor. No rashes or lesions noted. Course - Re-evaluation Re-evalutation: I did review work-up from triage. CBC shows mild leukocytosis, nonspecific. Chemistry unremarkable. EKG unremarkable. I ordered a troponin, I was going to add a test, however lab states that they no longer have the blood in the lab, discussed patient redraw, patient declined. Patient states she had a negative test 3 days ago with official testing during her primary care evaluation. She declines checking troponin. I feel this is appropriate based on her symptoms, work-up, and CT had been performed and shows possible chronic right-sided pulmonary embolism but no concerning findings acutely otherwise. Vital signs unremarkable on repeat. Patient has pleuritic pain with deep breaths and also some pain over the left side of the chest which could be chest wall (based on palpation, not severe). I did call and speak with Dr. Chavez. She recommends patient be started on oral anticoagulation and follow-up in the office. Patient started on Eliquis, discussed close follow-up, discussed return precautions, discussed details. Patient and mother state appreciation and agreement. Stable and well-appearing at time of discharge. - Vital Signs Vital signs: Temp Pulse Resp BP Pulse Ox 98.7 F 91 16 123/74 100 12/12/19 04:58 12/12/19 04:58 12/12/19 04:58 12/12/19 04:58 12/12/19 04:58 - Laboratory Result Diagrams: 12/11/19 22:30 12/11/19 22:30 Laboratory results interpreted by me: 12/11/19 12/11/19 22:30 22:30 WBC 12.2 H RDW 14.6 H Absolute Neuts (auto) 8.4 H Sodium 136.1 L AST 42 H ALT 54 H Discharge - Discharge Clinical Impression: Shortness of breath, Pleuritic pain Chest pain Qualifiers: Chest pain type: unspecified Qualified Code(s): R07.9 - Chest pain, unspecified Condition: Stable Disposition: HOME, SELF-CARE Additional Instructions: Your CT shows possible older pulmonary embolus in the right lung, no new or large clot is seen. I spoke with Dr. Chavez. Take the blood thinner as prescribed, call her office on Friday for close follow-up and additional management. Return for any concerning symptoms including difficulty breathing, spiking fever, passing out, or any other concerning or worsening symptoms. Prescriptions: Apixaban [Eliquis 5 mg Tablet] 5 mg PO BID #60 tablet Referrals: BRENDAN CHAVEZ MD [ACTIVE STAFF] - 12/13/19
--- NOTE | 2019-12-12 04:00 | RADIOLOGY REPORT (SQ) ---
CLINICAL HISTORY: CHEST PAIN/SHORTNESS OF BREATH/HX OF PE COMPARISON: None. TECHNIQUE: CT CHEST ANGIOGRAPHY WITHOUT THEN WITH IV CONTRAST on 12/11/2019 10:11 PM FITNESS COORDINATOR. MIPS reconstructions were generated. This exam was performed according to our departmental dose-optimization program, which includes automated exposure control, adjustment of the mA and/or kV according to patient size and/or use of iterative reconstruction technique. MIP images were generated. FINDINGS: Thoracic aorta is normal in course and caliber without aneurysm or dissection. Pulmonary arteries are poorly opacified. There are no larger central acute filling defects. There is decreased caliber of right lower lobe pulmonary artery branches. The heart is normal in size. There is no pericardial effusion. Intrathoracic lymph nodes are not enlarged. There is no pleural effusion, pleural thickening or pneumothorax. There is prominence of bronchial arterial vasculature in the posterior mediastinum in the mid chest. There is minimal right basilar atelectasis. There are no acute abnormalities within the limited images of the upper abdomen. There are no acute osseous findings. No suspicious bony lesions. IMPRESSION: Likely chronic right lower lobe pulmonary embolus, poorly seen. No large or central pulmonary embolus. No aortic dissection or aneurysm. No pneumonia.
[2019-12-12] MEDS ORDERED: HYDROCODONE/ACETAMINOPHEN 5-325 MG (6 TAB/ER DISP) PO PRN (04:26)
[2019-12-12 04:58] VITALS: BP 123/74
--- NOTE | 2019-12-12 09:23 | EKG REPORT ---
SEVERITY:- BORDERLINE ECG - SINUS RHYTHM INFERIOR Q WAVES, PROBABLY NORMAL VARIATION : Confirmed by: En Alexander MD 12-Dec-2019 09:23:21
== END 2019-12-12 05:07 | disposition home or self-care (01) ==
LOC: ER 20:57
DX: R07.9 Chest pain, unspecified (principal); R07.81 Pleurodynia; R06.02 Shortness of breath; Z86.711 Personal history of pulmonary embolism; Z79.01 Long term (current) use of anticoagulants; J45.909 Unspecified asthma, uncomplicated; Z88.8 Allergy status to other drugs, medicaments and biological substances; Z79.899 Other long term (current) drug therapy; F17.200 Nicotine dependence, unspecified, uncomplicated
CPT/HCPCS: 93005; 99285; 96374; 96375; 36415; 85025; 85610; 85730; 80053; 71275; 93010; J2270; J2405

== ENCOUNTER 2020-07-03 23:10 | Emergency (ER) | payer MEDICAID ==
[2020-07-04] MEDS ORDERED: IPRATROPIUM/ALBUTEROL 0.5-2.5 MG/3 ML AMPUL NEB ONE ×2 (01:05→07:29)
--- NOTE | 2020-07-04 01:09 | ER Document Report ---
ED Medical Screen (RME) - General Chief Complaint: Shortness Of Breath Stated Complaint: SHORTNESS OF BREATH,FEVER Time Seen by Provider: 07/04/20 01:05 Primary Care Provider: PRAMOD LAIRD MD [Primary Care Provider] - Follow up as needed Mode of Arrival: Ambulatory Information source: Patient Notes: Patient is a 24-year-old female unfortunately with history of right pulmonary embolism on Eliquis chronically. Over the past 2 days having increased shortness of breath, fevers and chills, and general myalgias and malaise. She has had multiple potential contacts with COVID positive patients General exam: Looks very uncomfortable, tachypneic Cardiac regular rate and rhythm Pulmonary dyspneic diminished bilaterally Abdomen nontender Neuro no focal deficits I have greeted and performed a rapid initial assessment of this patient. A comprehensive ED assessment and evaluation of the patient, analysis of test results and completion of the medical decision making process will be conducted by additional ED providers. TRAVEL OUTSIDE OF THE [place] IN LAST 30 DAYS: No - Related Data Allergies/Adverse Reactions: cephalexin [From Keflex] Allergy (Verified 07/29/18 08:15) loracarbef [From Lorabid] Allergy (Verified 07/29/18 08:15) NSAIDS (Non-Steroidal Anti-Inflamma Adverse Reaction (Verified 07/29/18 08:15) Past Medical History - Social History Family history: Arthritis, Malignancy, CAD, DM, Hyperlipidemia, Hypertension - Past Medical History Cardiac Medical History: Reports: Hx DVT, Hx Pulmonary Embolism - Twice Pulmonary Medical History: Reports: Hx Asthma - as child, Hx Intubation - With trach as a child Renal/ Medical History: Reports: Hx Ovarian Cysts. Denies: Hx Peritoneal Dialysis GI Medical History: Reports: Hx Gastroesophageal Reflux Disease, Hx Ulcerative Colitis, Hx Colonoscopy, Hx Endoscopy Musculoskeltal Medical History: Reports Hx Arthritis, Reports Hx Musculoskeletal Trauma - nose, bilateral ankles, and toe Psychiatric Medical History: Reports: Hx Anxiety, Hx Depression Traumatic Medical History: Reports: Hx Fractures Past Surgical History: Reports: Hx Abdominal Surgery - colostomy/take down multiple bowel surgeries, Hx Bowel Surgery - Multiple bowel surgeries and a J- pouch, Hx Cholecystectomy, Hx Colostomy - Had reversal surgery creating a J- pouch - Immunizations Immunizations up to date: Yes Hx Diphtheria, Pertussis, Tetanus Vaccination: Yes Physical Exam - Vital signs Vitals: Temp Pulse Resp BP Pulse Ox 98.9 F 88 20 144/80 H 100 07/03/20 23:36 07/03/20 23:36 07/03/20 23:36 07/03/20 23:36 07/03/20 23:36 Course - Vital Signs Vital signs: Temp Pulse Resp BP Pulse Ox 98.9 F 88 20 144/80 H 100 07/03/20 23:36 07/03/20 23:36 07/03/20 23:36 07/03/20 23:36 07/03/20 23:36 Doctor's Discharge - Discharge Referrals: PRAMOD LAIRD MD [Primary Care Provider] - Follow up as needed
[2020-07-04 02:22] LABS: ABSOLUTE BASOPHILS # (AUTO) 0.1 10^3/uL (0.0-0.2); ABSOLUTE EOSINOPHILS # (AUTO) 0.2 10^3/uL (0.0-0.6); ABSOLUTE LYMPHOCYTES (AUTO) 2.6 10^3/uL (0.5-4.7); ABSOLUTE MONOCYTES (AUTO) 0.6 10^3/uL (0.1-1.4); ABSOLUTE NEUT (AUTO) 7.4 10^3/uL (1.7-8.2); BASOPHILS % (AUTO) 1.1 % (0-2); EOSINOPHILS % (AUTO) 1.8 % (0-6); HEMATOCRIT 40.9 % (36.0-47.0); LYMPHOCYTES % (AUTO) 23.9 % (13-45); MEAN CORPUSCULAR HEMOGLOBIN 28.2 pg (27.0-33.4); MEAN CORPUSCULAR HGB CONC 34.2 g/dL (32.0-36.0); MEAN CORPUSCULAR VOLUME 82 fl (80-97); MONOCYTES % (AUTO) 5.5 % (3-13); PLATELET COUNT 225 10^3/uL (150-450); RED BLOOD COUNT 4.96 10^6/uL (3.72-5.28); RED CELL DISTRIBUTION WIDTH 14.5 % (11.5-14.0); SEGMENTED NEUTROPHILS % (AUTO) 67.7 % (42-78); TOTAL CELLS COUNTED % (AUTO) 100 %; WHITE BLOOD COUNT 10.9 10^3/uL (4.0-10.5)
[2020-07-04 02:36] LABS: INTERNATIONAL RATION (INR) 1.01; PROTHROMBIN TIME 13.5 SEC (11.4-15.4)
[2020-07-04 02:50] LABS: ALBUMIN 4.5 g/dL (3.5-5.0); ALKALINE PHOSPHATASE 122 U/L (38-126); ANION GAP 11 (5-19); ASPARTATE AMINO TRANSFERASE 31 U/L (14-36); BILIRUBIN,DIRECT 0.2 mg/dL (0.0-0.4); BILIRUBIN,TOTAL 0.5 mg/dL (0.2-1.3); BLOOD UREA NITROGEN 14 mg/dL (7-20); CALCIUM 9.8 mg/dL (8.4-10.2); CARBON DIOXIDE 25 mmol/L (22-30); CHLORIDE 103 mmol/L (98-107); GLUCOSE 93 mg/dL (75-110); POTASSIUM 4.5 mmol/L (3.6-5.0); TOTAL PROTEIN 7.1 g/dL (6.3-8.2)
--- NOTE | 2020-07-04 03:00 | RADIOLOGY REPORT (SQ) ---
EXAM DESCRIPTION: XR CHEST 1 VIEW COMPLETED DATE/TME: 07/04/2020 01:06 CLINICAL HISTORY: 24 years, Female, sob, fever COMPARISON: 10/07/2018 chest NUMBER OF VIEWS: 1 TECHNIQUE: Portable chest LIMITATIONS: None. FINDINGS: Heart size is normal. Mild elevation of the right hemidiaphragm. Subsegmental atelectasis in each lung base. No pneumothorax. Lungs are otherwise clear IMPRESSION: No acute cardiopulmonary process copyright 2010 [employer]- All Rights Reserved
[2020-07-04] MEDS ORDERED: ACETAMINOPHEN 325 MG TABLET PO ONE (06:05)
--- NOTE | 2020-07-04 07:22 | EKG REPORT ---
SEVERITY:- BORDERLINE ECG - SINUS RHYTHM INFERIOR Q WAVES, PROBABLY NORMAL VARIATION : Confirmed by: En Alexander MD 04-Jul-2020 07:21:08
[2020-07-04] MEDS ORDERED: METHYLPREDNISOLONE INJ 125 MG/2 ML SDV IM ONE (08:43)
--- NOTE | 2020-07-04 08:47 | ER Document Report ---
ED Respiratory Problem - General Chief Complaint: Flu Symptoms Stated Complaint: SHORTNESS OF BREATH,FEVER Time Seen by Provider: 07/04/20 01:05 Primary Care Provider: PRAMOD LAIRD MD [Primary Care Provider] - Follow up as needed Mode of Arrival: Ambulatory Information source: Patient Notes: 24-year-old female past medical history significant for chronic PEs, asthma, ulcerative crisis, and GERD presents to the emergency room complaining of worsening shortness of breath for the past 2 days with a cough that started yesterday with a fever of 101.3. States she has been taking Tylenol with some relief. History of chronic diarrhea but also states her diarrhea is worse and watery today. She denies any recent travel. However she has had a recent COVID-19 exposure. States her stepdaughter's mother who she sees frequently was diagnosed 2 days ago with COVID. She has not been tested for COVID in the past. Eating and drinking normally. Denies any chance of . TRAVEL OUTSIDE OF THE [place] IN LAST 30 DAYS: No - Related Data Allergies/Adverse Reactions: cephalexin [From Keflex] Allergy (Verified 07/29/18 08:15) loracarbef [From Lorabid] Allergy (Verified 07/29/18 08:15) NSAIDS (Non-Steroidal Anti-Inflamma Adverse Reaction (Verified 07/29/18 08:15) Home Medications: albuterol inhaler, symbicort, vit d, eliquis, nexium, zyrtec Past Medical History - General Information source: Patient - Social History Smoking Status: Former Smoker Frequency of alcohol use: None Drug Abuse: None Family History: Arthritis, CAD, CVA, DM, Hyperlipidemia, Hypertension, Malignancy - Past Medical History Cardiac Medical History: Reports: Hx DVT, Hx Pulmonary Embolism - Twice Pulmonary Medical History: Reports: Hx Asthma - as child, Hx Intubation - With trach as a child Renal/ Medical History: Reports: Hx Ovarian Cysts. Denies: Hx Peritoneal Dialysis GI Medical History: Reports: Hx Gastroesophageal Reflux Disease, Hx Ulcerative Colitis, Hx Colonoscopy, Hx Endoscopy Musculoskeletal Medical History: Reports Hx Arthritis, Reports Hx Muscul oskeletal Trauma - nose, bilateral ankles, and toe Psychiatric Medical History: Reports: Hx Anxiety, Hx Depression Traumatic Medical History: Reports: Hx Fractures Past Surgical History: Reports: Hx Abdominal Surgery - colostomy/take down multiple bowel surgeries, Hx Bowel Surgery - Multiple bowel surgeries and a J- pouch, Hx Cholecystectomy, Hx Colostomy - Had reversal surgery creating a J- pouch - Immunizations Immunizations up to date: Yes Hx Diphtheria, Pertussis, Tetanus Vaccination: Yes Review of Systems - Review of Systems Constitutional: Fever, Malaise EENT: No symptoms reported Cardiovascular: No symptoms reported Respiratory: Cough, Short of breath Gastrointestinal: Diarrhea. denies: Abdominal pain, Nausea, Vomiting Musculoskeletal: No symptoms reported Skin: No symptoms reported Neurological/Psychological: No symptoms reported -: Yes All other systems reviewed and negative Physical Exam - Vital signs Vitals: Temp Pulse Resp BP Pulse Ox 98.9 F 88 20 144/80 H 100 07/03/20 23:36 07/03/20 23:36 07/03/20 23:36 07/03/20 23:36 07/03/20 23:36 - Notes Notes: VITAL SIGNS: Within normal limits. GENERAL: No acute distress, non-toxic appearance. HEAD: Normal with no signs of head trauma. EYES: PERRLA, EOMI, conjunctiva normal, no discharge. EARS: Hearing grossly intact. NOSE: Normal. THROAT: Oropharynx is normal. NECK: Normal range of motion, no tenderness, supple, no lymphadenopathy, No adenopathy, no JVD. CHEST: Clear breath sounds bilaterally. No wheezes, rales, or rhonchi. CARDIAC: Regular rate and rhythm. S1 and S2, without murmurs, gallops, or rubs. VASCULAR: No Edema. Peripheral pulses normal and equal in all extremities. ABDOMEN: Normal and soft with no tenderness, no masses or pulsatile masses. GASTROINTESTINAL: Bowel sounds normal GENITOURINARY: Normal, No tenderness LYMPATHTIC: No lymphadenopathy noted. MUSCULOSKELETAL: Good range of motion of all major joints. Extremities without clubbing, cyanosis or edema. NEUROLOGICAL: Alert and oriented x 3. No focal sensory or strength deficits. Speech normal. Follows commands appropriately. PSYCHIATRIC: Normal Affect, judgement and mood. SKIN: Normal appearance with no rashes or lesions. Course - Re-evaluation Re-evalutation: 07/04/20 08:45 Patient is resting comfortably reviewed all lab and x-ray results with patient. Reviewed EKG. Patient states is feeling better after receiving nebulizer treatment. Patient will be discharged home on p.o. prednisone, will receive IM Solu-Medrol prior to discharge. COVID test is pending. She was counseled on the importance of self quarantine for the next 14 days or until she receives a negative cover test. Patient was evaluated during the global COVID-19 pandemic and that diagnosis was suspected/considered upon their initial presentation. Their evaluation, treatment and testing was consistent with current guidelines for patients who presents with complaints or systems that may be related to COVID-19. She was counseled on importance of following up with her primary care physician if not improving in 2 to 3 days. Patient was given strict return to the emergency room guidelines. Return for any new or worsening symptoms. All questions were answered. Patient verbalized understanding and agrees with plan of care. - Vital Signs Vital signs: Temp Pulse Resp BP Pulse Ox 98.1 F 80 16 103/69 99 07/04/20 09:20 07/04/20 09:20 07/04/20 09:20 07/04/20 09:20 07/04/20 09:20 - Laboratory Result Diagrams: 07/04/20 02:10 07/04/20 02:10 Laboratory results interpreted by me: 07/04/20 07/04/20 02:10 02:10 WBC 10.9 H RDW 14.5 H ALT 39 H - Diagnostic Test Radiology reviewed: Reports reviewed - EKG Interpretation by [place] EKG shows normal: Sinus rhythm When compared to previous EKG there are: No significant change Additional EKG results interpreted by me: 07/04/20 08:44 EKG was interpreted by ER physician Dr. Luna No acute STEMI Normal sinus rhythm Rate 84 Normal axis Unchanged from previous EKG. Of 12/11/2019 Discharge - Discharge Clinical Impression: Asthma exacerbation, mild, Close exposure to COVID-19 virus, Viral URI with cough Condition: Stable Disposition: HOME, SELF-CARE Instructions: COVID-19 Guidance for Persons Under Investigation, Asthma ([facility]), Upper Respiratory Illness ([facility]) Additional Instructions: You are required to self quarantine for the next 14 days unless you receive a negative COVID-19 test prior to that time. Take prednisone as prescribed. Follow-up with your primary care physician if not improving in 2 to 3 days. Return to the emergency room for any new or worsening symptoms. Prescriptions: Prednisone [Deltasone 20 mg Tablet] See Protocol PO DAILY 9 Days #18 tablet Referrals: PRAMOD LAIRD MD [Primary Care Provider] - Follow up as needed
[2020-07-04 09:20] VITALS: BP 103/69
== END 2020-07-04 09:21 | disposition home or self-care (01) ==
LOC: ER 23:10
DX: J06.9 Acute upper respiratory infection, unspecified (principal); J45.901 Unspecified asthma with (acute) exacerbation; R50.9 Fever, unspecified; Z20.828 Contact with and (suspected) exposure to other viral communicable diseases; Z86.718 Personal history of other venous thrombosis and embolism
CPT/HCPCS: 93005; 94640; 99285; 96372; 36415; 84703; 85025; 85610; 85730; 87635; 80053; 71045; 93010; J3490; J2930; C9803